=== PATIENT | female | born 1965 | race Caucasian/White ===

== ENCOUNTER 2016-10-21 09:08 | Inpatient (IN) | payer BC ==
[2016-10-21 12:33] VITALS: BMI 29.8
--- NOTE | 2016-10-21 13:25 | HP ---
COWS - Scale Resting Pulse: 0= [place] 80 or Below Sweatin=Flushed/Facial Moisture Restless Observation: 1= Difficult to Sit Still Pupil Size: 0= Normal to Room Light Bone or Joint Aches: 2= Severe Diffuse Aches Runny Nose/ Eye Tearin= Runny Nose/Eyes GI Upset > 30mins: 2= Nausea/Diarrhea Tremor Observation: 2= Slight Tremor Visible Yawning Observation: 2= >3x During Session Anxiety or Irritability: 2=Irritable/Anxious Goose Flesh Skin: 3=Piloerection COWS Score: 18 CIWA Score - CIWA Score Nausea/Vomitin-Mild Nausea/No Vomiting Muscle Tremors: 4-Moderate,w/Arms Extend Anxiety: 3 Agitation: 4-Moderately Restless Paroxysmal Sweats: 3 Orientation: 0-Oriented Tacttile Disturbances: 0-None Auditory Disturbances: 0-None Visual Disturbances: 0-None Headache: 1-Very Mild CIWA-Ar Total Score: 16 Admission ROS BHS - HPI Chief Complaint: I need to stop and get my self together. Allergies/Adverse Reactions: Allergies Allergy/AdvReac Type Severity Reaction Status Date / Time celecoxib [From Celebrex] Allergy Severe Rash Verified 10/21/16 12:51 History of Present Illness: pt is a 51yr old male with a history of alcohol, benzodiazapine, oxycodone dependence seeking detox for treatment. Exam Limitations: No Limitations - Ebola screening Have you traveled outside of the country in the last 21 days: No Have you had contact with anyone from an Ebola affected area: No Have you been sick,other than usual withdrawal symptoms: No Do you have a fever: No - Review of Systems Constitutional: Diaphoresis, Loss of Appetite, Night Sweats, Unintentional Wgt. Loss EENT: reports: Tearing, Nose Congestion Respiratory: reports: No Symptoms reported Cardiac: reports: Syncope GI: reports: Constipated, Nausea, Poor Appetite, Poor Fluid Intake, Vomiting : reports: No Symptoms Reported Musculoskeletal: reports: Back Pain, Joint Pain, Joint Stiffness Integumentary: reports: Flushing, Sweating Neuro: reports: Headache, Tingling, Tremors Endocrine: reports: Flushing, Intolerance to Cold, Intolerance to Heat Hematology: reports: No Symptoms Reported Psychiatric: reports: Judgement Intact, Mood/Affect Appropiate, Orientated x3, Agitated, Anxious Other Systems: Reviewed and Negative Patient History - Patient Medical History Hx Anemia: No Hx Asthma: No Hx Chronic Obstructive Pulmonary Disease (COPD): No Hx Cancer: No Hx Cardiac Disorders: No Hx Congestive Heart Failure: No Hx Hypertension: No Hx Hypercholesterolemia: No Hx Pacemaker: No HX Cerebrovascular Accident: No Hx Seizures: No Hx Diabetes: No Hx Gastrointestinal Disorders: No Hx Liver Disease: No Hx Genitourinary Disorders: No Hx Sexually Transmitted Disorders: Yes (syphilis since age 14. titer 1;4-1;8) Hx Renal Disease (ESRD): No Hx Thyroid Disease: No Hx Human Immunodeficiency Virus (HIV): No (neg 2011) Hx Hepatitis C: Yes (was treated unsuccessfully undetecable) Hx Depression: Yes Hx Suicide Attempt: No (denies) Hx Bipolar Disorder: No Hx Schizophrenia: No - Patient Surgical History Past Surgical History: Yes Hx Neurologic Surgery: No Hx Cataract Extraction: No Hx Cardiac Surgery: No Hx Lung Surgery: No Hx Breast Surgery: No Hx Breast Biopsy: No Hx Abdominal Surgery: No Hx Appendectomy: No Hx Cholecystectomy: Yes (2003) Hx Genitourinary Surgery: No Hx Section: No Hx Orthopedic Surgery: Yes (right rotator cuff, right knee,left knee) Other Surgical History: lower back Anesthesia Reaction: No - PPD History Previous Implant?: Yes PPD to be Administered?: Yes - Reproductive History Patient is a Female of Child Bearing Age (11 -55 yrs old): Yes Last Menstrual Period: 09/22/15 Patient : Yes - Smoking Cessation Smoking history: Current every day smoker Have you smoked in the past 12 months: Yes Aproximately how many cigarettes per day: 20 Cigars Per Day: 0 Hx Chewing Tobacco Use: No Initiated information on smoking cessation: Yes 'Breaking Loose' booklet given: 10/21/16 - Substance & Tx. History Hx Alcohol Use: Yes Hx Substance Use: Yes Substance Use Type: Alcohol, Opiates, Prescribed Hx Substance Use Treatment: Yes - Substances Abused Alcohol Route: Oral Frequency: Daily Amount used: 1-2 6pk Age of first use: 14 Date of Last Use: 10/21/16 Percocet Route: Oral Frequency: 1-3 times last 30 days Amount used: 1 tab (10-325mg) Age of first use: 50 Date of Last Use: 10/21/16 Xanax Route: Oral Frequency: Daily Amount used: 10mg Age of first use: 50 Date of Last Use: 10/21/16 Family Disease History - Family Disease History Family Disease History: Other: Father (heroin, crack), Mother (MMTP) Admission Physical Exam [facility] - Vital Signs Vital Signs: Vital Signs - 24 hr 10/21/16 12:30 Temperature 97.1 F L Pulse Rate 77 Respiratory 18 Rate Blood Pressure 109/76 - Physical General Appearance: Yes: Appropriately Dressed, Moderate Distress, Obese, Tremorous, Irritable, Sweating, Anxious HEENTM: Yes: Hearing grossly Normal, Normal Voice, Nasal Congestion Respiratory: Yes: Lungs Clear, Normal Breath Sounds, No Respiratory Distress Neck: Yes: No masses,lesions,Nodules Breast: Yes: Within Normal Limits, Axillae without masses Cardiology: Yes: Regular Rhythm, Regular Rate, S1, S2 Abdominal: Yes: Normal Bowel Sounds, Non Tender, Soft Genitourinary: Yes: Within Normal Limits Back: Yes: Normal Inspection Musculoskeletal: Yes: full range of Motion, Gait Steady, Back pain Extremities: Yes: Normal Capillary Refill, Normal Inspection, Non-Tender, Tremors Neurological: Yes: Fully Oriented, Alert, Normal Response Integumentary: Yes: Normal Color, Diaphoresis Lymphatic: Yes: Within Normal Limits - Diagnostic (1) Alcohol dependence with uncomplicated withdrawal Current Visit: Yes Status: Chronic (2) Depression Current Visit: Yes Status: Chronic Qualifiers: Major depression episode severity: unspecified (3) Hepatitis C Current Visit: No Status: Chronic Qualifiers: Hepatic coma status: without hepatic coma Comment: received treatment (rebeka) now undetected (4) Nicotine dependence Current Visit: Yes Status: Chronic Qualifiers: Nicotine product type: cigarettes Substance use status: uncomplicated Qualified Code(s): F17.210 - Nicotine dependence, cigarettes, uncomplicated (5) Opioid dependence with withdrawal Current Visit: Yes Status: Chronic (6) Sedative/hypnotic withdrawal without complication Current Visit: Yes Status: Chronic Cleared for Admission [facility] - Detox or Rehab [facility] Level of Care: Medically Managed Detox Regimen/Protocol: Methadone/Valium [facility] Breath Alcohol Content Breath Alcohol Content: 0 Urine Pregancy Test - Result Urine Test Results: Negative- NO Line Present Urine Drug Screen - Results Drug Screen Negative: No Urine Drug Screen Results: OPI-Opiates, BZO-Benzodiazepines, MTD-Methadone, TCA- Tricyclic Antidepress, OXY-Oxycodone
[2016-10-21] MEDS ORDERED: P-EPHED 60MG/TRIPROLIDI 2.5MG TABLET PO PRN (13:40)
[2016-10-21] MEDS ORDERED: hydrOXYzine PAMOATE 50 MG CAPSULE (FP) PO PRN (13:40)
[2016-10-21] MEDS ORDERED: MAGNESIUM HYDROX 2400MG/30ML ORAL SUSPENSION 30 ML CUP PO PRN (13:40)
[2016-10-21] MEDS ORDERED: NICOTINE POLACRILEX 4 MG GUM BUC PRN (13:40)
[2016-10-21] MEDS ORDERED: MAGNESIUM CITRATE 300 ML BOTTLE PO PRN (13:40)
[2016-10-21] MEDS ORDERED: guaiFENesin/D-METHORPHAN HB 10 ML UNIT-DOSE CUPS PO PRN (13:40)
[2016-10-21] MEDS ORDERED: MENTHOL/PHENOL 1 EACH UD MM PRN (13:40)
[2016-10-21] MEDS ORDERED: MAG HYDROX/AL HYDROX/SIMETH 30 ML UNIT-DOSE CUP PO PRN (13:40)
[2016-10-21] MEDS ORDERED: IBUPROFEN 400 MG TABLET (FP) PO PRN (13:40)
[2016-10-21] MEDS ORDERED: LOPERAMIDE HCL 2 MG CAPSULE PO PRN (13:40)
[2016-10-21] MEDS ORDERED: diazePAM 5 MG TABLET PO ONE (14:03)
[2016-10-21] MEDS ORDERED: METHADONE HCL 10 MG TABLET (FOR DETOX USE ONLY) PO ONE ×2 (14:04→23:00)
[2016-10-21] MEDS: diazePAM 5 MG TABLET PO SCH ×2 (15:29→22:26)
[2016-10-21 17:23] LABS: URINE APPEARANCE SLCLOUDY; URINE BILIRUBIN NEGATIVE (NEGATIVE); URINE BLOOD NEGATIVE (NEGATIVE); URINE COLOR AMBER; URINE GLUCOSE (UA) NEGATIVE (NEGATIVE); URINE KETONE NEGATIVE (NEGATIVE); URINE NITRITE NEGATIVE (NEGATIVE); URINE PROTEIN NEGATIVE (NEGATIVE); URINE UROBILINOGEN 4.0 E.U/dl E.U./dl (0.2-1.0)
[2016-10-21 17:24] LABS: URINE LEUK ESTERASE 3+ (NEGATIVE)
[2016-10-21 18:00] LABS: URINE MUCUS RARE; URINE RBC 23 /hpf (0-3); URINE WBC 24 /hpf (3-5)
[2016-10-21] MEDS: ACETAMINOPHEN 325 MG TABLET (FP) PO PRN (19:12)
[2016-10-21] MEDS: diazePAM 5 MG TABLET PO PRN (19:59)
[2016-10-21] MEDS: diphenhydrAMINE HCL 50 MG CAPSULE PO PRN (22:25)
[2016-10-21] MEDS: THIAMINE HCL 100 MG TABLET (FP) PO SCH (22:26)
[2016-10-22] MEDS ORDERED: METHADONE HCL 10 MG TABLET ONE (05:07)
[2016-10-22] MEDS ORDERED: METHADONE HCL 40 MG DISPERSABLE TABLET ONE ×2 (05:08→09:44)
[2016-10-22] MEDS ORDERED: METHADONE 80 MG, METHADONE 20 MG PO SCH ×2 (06:00→08:00)
[2016-10-22] MEDS ORDERED: METHADONE HCL 10 MG TABLET PO SCH (06:00)
[2016-10-22] MEDS: diazePAM 5 MG TABLET PO SCH ×3 (06:06→22:19)
[2016-10-22] MEDS: ACETAMINOPHEN 325 MG TABLET (FP) PO PRN ×2 (08:50→19:28)
[2016-10-22] MEDS: diazePAM 5 MG TABLET PO PRN ×2 (08:51→19:28)
[2016-10-22] MEDS ORDERED: METHADONE HCL 10 MG TABLET (FOR DETOX USE ONLY) ONE (09:44)
[2016-10-22] MEDS ORDERED: METHADONE HCL 10 MG TABLET (FOR DETOX USE ONLY) PO SCH (10:00)
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
[2016-10-22] MEDS ORDERED: ZOLPIDEM TARTRATE 5 MG TABLET PO PRN (10:57)
[2016-10-22 11:06] LABS: MCH 30.3 pg (25.7-33.7); MCHC 33.6 g/dl (32.0-36.0); MEAN CELL VOLUME 90.3 fl (80-96); MEAN PLT VOLUME 10.6 fl (7.5-11.1); PLATELET COUNT 102 K/MM3 (134-434); RDW 14.9 % (11.6-15.6); WHITE BLOOD COUNT 6.5 K/mm3 (4.0-10.0)
[2016-10-22] MEDS: NICOTINE 21 MG/24 HOURS TOPICAL PATCH TD SCH (11:09)
[2016-10-22] MEDS: METHADONE 80 MG, METHADONE (DETOX) 20 MG PO SCH (11:09)
[2016-10-22] MEDS: PRENATAL VITAMINS W/ FOLIC ACID TABLET (FP) PO SCH (11:09)
[2016-10-22 11:59] LABS: ALBUMIN 3.7 g/dl (3.4-5.0); ALK PHOS 99 U/L (45-117); ANION GAP 9 (8-16); BILIRUBIN,TOTAL 0.4 mg/dL (0.2-1.0); CALCIUM 8.5 mg/dL (8.5-10.1); CO2 28 mmol/L (21-32); CREATININE 0.8 mg/dL (0.55-1.02); GLUCOSE,RANDOM 103 mg/dL (74-106); SGOT/AST 29 U/L (15-37); SGPT/ALT 33 U/L (12-78); TOT PROT 8.3 g/dl (6.4-8.2)
--- NOTE | 2016-10-22 14:06 | PN ---
S CIWA - CIWA Score Nausea/Vomitin Muscle Tremors: 4-Moderate,w/Arms Extend Anxiety: 4-Mod. Anxious/Guarded Agitation: 4-Moderately Restless Paroxysmal Sweats: 3 Orientation: 0-Oriented Tacttile Disturbances: 1-Very Mild Itch/Numbness Auditory Disturbances: 0-None Visual Disturbances: 0-None Headache: 0-None Present CIWA-Ar Total Score: 19 BHS COWS - Scale Resting Pulse: 1= [place] 81-100 Sweatin= Chills/Flushing Restless Observation: 1= Difficult to Sit Still Pupil Size: 1= Pupils >than Normal Bone or Joint Aches: 1= Mild Discomfort Runny Nose/ Eye Tearin= Nasal Congestion GI Upset > 30mins: 2= Nausea/Diarrhea Tremor Observation of Outstretched Hands: 2= Slight Tremor Visible Yawning Observation: 1= 1-2x During Session Anxiety or Irritability: 2=Irritable/Anxious Goose Flesh Skin: 3=Piloerection COWS Score: 16 S Progress Note (SOAP) Subjective: nausea, sweats, interrupted sleep, anxiety, tremor Objective: 10/22/16 14:06 Vital Signs - 24 hr 10/21/16 10/21/16 10/21/16 15:18 19:12 22:04 Temperature 98.2 F 98.1 F 98.2 F Pulse Rate 76 75 87 Respiratory 18 18 16 Rate Blood Pressure 108/67 108/72 121/76 10/22/16 10/22/16 10/22/16 00:30 03:30 06:34 Temperature 98.1 F Pulse Rate 74 Respiratory 16 18 18 Rate Blood Pressure 101/66 10/22/16 10:07 Temperature 98.4 F Pulse Rate 80 Respiratory 18 Rate Blood Pressure 104/79 Laboratory Tests 10/21/16 10/22/16 10/22/16 16:00 06:10 06:10 WBC 6.5 D RBC 4.88 Hgb 14.8 D Hct 44.1 MCV 90.3 MCHC 33.6 RDW 14.9 Plt Count 102 L D MPV 10.6 Sodium 136 Potassium 3.9 Chloride 99 Carbon Dioxide 28 Anion Gap 9 BUN 16 D Creatinine 0.8 Creat Clearance w eGFR > 60 Random Glucose 103 Calcium 8.5 Total Bilirubin 0.4 D AST 29 ALT 33 D Alkaline Phosphatase 99 Total Protein 8.3 H Albumin 3.7 Urine Color Lau[place] Urine Appearance Slcloudy Urine pH 5.0 Ur Specific [place] 1.020 Urine Protein Negative Urine Glucose (UA) Negative Urine Ketones Negative Urine Blood Negative Urine Nitrite Negative Urine Bilirubin Negative Urine Urobilinogen 4.0 e.u/dl H Ur Leukocyte Esterase 3+ H Urine RBC 23 Urine WBC 24 Ur Epithelial Cells Few Urine Mucus Rare Assessment: 10/22/16 14:06 withdrawal sx Plan: cont detox
[2016-10-22] MEDS: THIAMINE HCL 100 MG TABLET (FP) PO SCH (22:19)
[2016-10-23] MEDS: ACETAMINOPHEN 325 MG TABLET (FP) PO PRN (00:31)
[2016-10-23] MEDS: diphenhydrAMINE HCL 50 MG CAPSULE PO PRN (00:31)
[2016-10-23] MEDS ORDERED: METHADONE 80 MG, METHADONE 20 MG PO SCH ×2 (06:00)
[2016-10-23] MEDS ORDERED: METHADONE HCL 10 MG TABLET (FOR DETOX USE ONLY) ONE (09:44)
[2016-10-23] MEDS ORDERED: METHADONE HCL 40 MG DISPERSABLE TABLET ONE (09:45)
[2016-10-23] MEDS ORDERED: ONDANSETRON 8 MG TABLET (FP) PO ONE (09:48)
[2016-10-23] MEDS ORDERED: ONDANSETRON 4 MG TABLET PO PRN (09:48)
--- NOTE | 2016-10-23 09:48 | PN ---
[facility] CIWA - CIWA Score Nausea/Vomitin-Int. Nausea w/Dry Heave Muscle Tremors: 4-Moderate,w/Arms Extend Anxiety: 4-Mod. Anxious/Guarded Agitation: 4-Moderately Restless Paroxysmal Sweats: 3 Orientation: 0-Oriented Tacttile Disturbances: 1-Very Mild Itch/Numbness Auditory Disturbances: 0-None Visual Disturbances: 0-None Headache: 1-Very Mild CIWA-Ar Total Score: 21 BHS COWS - Scale Resting Pulse: 1= [place] 81-100 Sweatin= Chills/Flushing Restless Observation: 1= Difficult to Sit Still Pupil Size: 1= Pupils >than Normal Bone or Joint Aches: 2= Severe Diffuse Aches Runny Nose/ Eye Tearin= Nasal Congestion GI Upset > 30mins: 3= Vomiting/Diarrhea Tremor Observation of Outstretched Hands: 2= Slight Tremor Visible Yawning Observation: 1= 1-2x During Session Anxiety or Irritability: 2=Irritable/Anxious Goose Flesh Skin: 3=Piloerection COWS Score: 18 [facility] Progress Note (SOAP) Subjective: NAUSEA, VOMITINGK ANXIETY, DEPRESSION, INSOMNIA, DIFFICULATY URINATING, BODY ACHES, SWEATS, TREMORS Objective: 10/23/16 09:46 Vital Signs - 24 hr 10/22/16 10/22/16 10/22/16 10:07 14:38 18:03 Temperature 98.4 F 98.2 F 97.7 F Pulse Rate 80 84 59 L Respiratory 18 20 16 Rate Blood Pressure 104/79 110/76 109/68 10/22/16 10/23/16 10/23/16 23:10 03:30 06:00 Temperature 97.9 F 98.4 F Pulse Rate 66 64 Respiratory 18 18 18 Rate Blood Pressure 111/72 114/73 10/23/16 06:30 Temperature Pulse Rate Respiratory 16 Rate Blood Pressure Laboratory Tests 10/21/16 10/22/16 10/22/16 16:00 06:10 06:10 WBC 6.5 D RBC 4.88 Hgb 14.8 D Hct 44.1 MCV 90.3 MCHC 33.6 RDW 14.9 Plt Count 102 L D MPV 10.6 Sodium 136 Potassium 3.9 Chloride 99 Carbon Dioxide 28 Anion Gap 9 BUN 16 D Creatinine 0.8 Creat Clearance w eGFR > 60 Random Glucose 103 Calcium 8.5 Total Bilirubin 0.4 D AST 29 ALT 33 D Alkaline Phosphatase 99 Total Protein 8.3 H Albumin 3.7 Urine Color [place] Urine Appearance Slcloudy Urine pH 5.0 Ur Specific [place] 1.020 Urine Protein Negative Urine Glucose (UA) Negative Urine Ketones Negative Urine Blood Negative Urine Nitrite Negative Urine Bilirubin Negative Urine Urobilinogen 4.0 e.u/dl H Ur Leukocyte Esterase 3+ H Urine RBC 23 Urine WBC 24 Ur Epithelial Cells Few Urine Mucus Rare abnormal u/a Assessment: 10/23/16 09:47 withdrawal sx, abnormal u/a Plan: cont detox, encourage fluids, repeat u/a, symptomatic relief kali weiner
[2016-10-23] MEDS ORDERED: METHADONE HCL 5 MG TABLET (FOR DETOX USE ONLY) PO SCH (10:00)
[2016-10-23] MEDS ORDERED: cloNIDine HCL 0.1 MG TABLET PO SCH (10:00)
[2016-10-23] MEDS: cloNIDine HCL 0.1 MG TABLET PO SCH (10:19)
[2016-10-23] MEDS: diazePAM 5 MG TABLET PO SCH ×2 (10:19→22:17)
[2016-10-23] MEDS: NAPROXEN 500 MG TABLET (FP) PO SCH ×2 (10:19→22:17)
[2016-10-23] MEDS: METHADONE 80 MG, METHADONE (DETOX) 20 MG PO SCH (10:19)
[2016-10-23] MEDS: NICOTINE 21 MG/24 HOURS TOPICAL PATCH TD SCH (10:19)
[2016-10-23] MEDS: PRENATAL VITAMINS W/ FOLIC ACID TABLET (FP) PO SCH (10:20)
[2016-10-23] MEDS ORDERED: ONDANSETRON *ODT* 4 MG TABLET SL PRN (11:25)
[2016-10-23] MEDS ORDERED: ONDANSETRON *ODT* 4 MG TABLET SL ONE (11:30)
[2016-10-23] MEDS: CYCLOBENZAPRINE HCL 10 MG TABLET (FP) PO SCH ×2 (14:33→22:17)
[2016-10-23] MEDS: diazePAM 5 MG TABLET PO PRN (14:34)
[2016-10-23] MEDS ORDERED: ZOLPIDEM TARTRATE 5 MG TABLET PO PRN (22:00)
[2016-10-23] MEDS: THIAMINE HCL 100 MG TABLET (FP) PO SCH (22:16)
[2016-10-23] MEDS: diphenhydrAMINE HCL 50 MG CAPSULE PO SCH (22:17)
[2016-10-23 22:42] LABS: URINE APPEARANCE SLCLOUDY; URINE BILIRUBIN NEGATIVE (NEGATIVE); URINE BLOOD NEGATIVE (NEGATIVE); URINE COLOR DKYELLOW; URINE GLUCOSE (UA) NEGATIVE (NEGATIVE); URINE KETONE NEGATIVE (NEGATIVE); URINE NITRITE NEGATIVE (NEGATIVE); URINE PROTEIN NEGATIVE (NEGATIVE); URINE UROBILINOGEN 4.0 E.U/dl E.U./dl (0.2-1.0)
[2016-10-23 22:43] LABS: URINE LEUK ESTERASE 3+ (NEGATIVE)
[2016-10-23 22:46] LABS: URINE MUCUS FEW; URINE RBC 13 /hpf (0-3); URINE WBC 25 /hpf (3-5)
[2016-10-24] MEDS: diphenhydrAMINE HCL 50 MG CAPSULE PO SCH ×2 (00:40→22:25)
[2016-10-24] MEDS: CYCLOBENZAPRINE HCL 10 MG TABLET (FP) PO SCH ×3 (05:52→22:24)
[2016-10-24] MEDS: diazePAM 5 MG TABLET PO PRN (05:54)
[2016-10-24] MEDS ORDERED: METHADONE HCL 40 MG DISPERSABLE TABLET ONE (08:41)
[2016-10-24] MEDS ORDERED: METHADONE HCL 10 MG TABLET (FOR DETOX USE ONLY) ONE (08:41)
[2016-10-24] MEDS: cloNIDine HCL 0.1 MG TABLET PO SCH ×2 (10:14→22:25)
[2016-10-24] MEDS: METHADONE 80 MG, METHADONE (DETOX) 20 MG PO SCH (10:14)
[2016-10-24] MEDS: diazePAM 5 MG TABLET PO SCH ×2 (10:14→22:23)
[2016-10-24] MEDS: NICOTINE 21 MG/24 HOURS TOPICAL PATCH TD SCH (10:14)
[2016-10-24] MEDS: PRENATAL VITAMINS W/ FOLIC ACID TABLET (FP) PO SCH (10:14)
[2016-10-24] MEDS: NAPROXEN 500 MG TABLET (FP) PO SCH ×2 (10:15→22:24)
--- NOTE | 2016-10-24 10:50 | PN ---
[facility] Progress Note (SOAP) Subjective: sweats interrupted sleep agitation Objective: 10/24/16 10:49 Vital Signs Temperature 97.9 F 10/24/16 10:15 Pulse Rate 78 10/24/16 10:15 Respiratory Rate 18 10/24/16 10:15 Blood Pressure 106/70 10/24/16 10:15 O2 Sat by Pulse Oximetry (%) awake/alert ambulating no acute distress Assessment: 10/24/16 10:49 withdrawal sx Plan: continue detox increase fluids d/c in am
--- NOTE | 2016-10-24 12:18 | PN ---
S Progress Note Note: pt has a 1:8 titer for syphilis; penecillian g 2.4million x one dose. pt was advised to follow up with PMD to receive the remaining doses; pt in agreement.
[2016-10-24] MEDS ORDERED: PENICILLIN G BENZATHINE 2,400,000 UNIT/4 ML PFS IM ONE (12:22)
--- NOTE | 2016-10-24 12:48 | EKG ---
Test Reason : Blood Pressure : / mmHG Vent. Rate : 073 BPM Atrial Rate : 073 BPM P-R Int : 120 ms QRS Dur : 080 ms QT Int : 426 ms P-R-T Axes : 011 001 028 degrees QTc Int : 469 ms NORMAL SINUS RHYTHM NORMAL ECG NO PREVIOUS ECGS AVAILABLE Confirmed by LUPILLO COBOS MD ([id number]) on 10/24/2016 12:47:55 PM Referred By: Mauricio Allan Confirmed By:LUPILLO COBOS MD
[2016-10-24] MEDS: THIAMINE HCL 100 MG TABLET (FP) PO SCH (22:23)
[2016-10-25] MEDS: diphenhydrAMINE HCL 50 MG CAPSULE PO SCH (00:35)
[2016-10-25] MEDS: CYCLOBENZAPRINE HCL 10 MG TABLET (FP) PO SCH (05:19)
[2016-10-25 06:27] VITALS: BP 102/73; PULSE 64; TEMP 981
[2016-10-25] MEDS ORDERED: METHADONE HCL 10 MG TABLET (FOR DETOX USE ONLY) ONE (08:44)
[2016-10-25] MEDS ORDERED: METHADONE HCL 40 MG DISPERSABLE TABLET ONE (08:45)
--- NOTE | 2016-10-25 08:48 | DS ---
[facility] Detox Discharge Summary Admission Date: 10/21/16 Discharge Date: 10/25/16 - History Present History: Alcohol Dependence, MMTP - Physical Exam Results Vital Signs: Vital Signs Temperature 981 F H 10/25/16 06:26 Pulse Rate 64 10/25/16 06:26 Respiratory Rate 18 10/25/16 06:26 Blood Pressure 102/73 10/25/16 06:26 O2 Sat by Pulse Oximetry (%) - Treatment Hospital Course: Detox Protocol Followed, Detoxed Safely, Responded well, Discharged Condition Good - Medication Discharge Medications: Ambulatory Orders Zolpidem Tartrate [Ambien] 10 mg PO HS PRN #30 tablet MDD 30 10/22/16 - Diagnosis (1) Opioid dependence on agonist therapy Current Visit: Yes Status: Chronic (2) PTSD (post-traumatic stress disorder) Current Visit: Yes Status: Chronic (3) Alcohol dependence with uncomplicated withdrawal Current Visit: Yes Status: Chronic (4) Depression Current Visit: Yes Status: Chronic Qualifiers: Major depression episode severity: unspecified (5) Nicotine dependence Current Visit: Yes Status: Chronic Qualifiers: Nicotine product type: cigarettes Substance use status: uncomplicated Qualified Code(s): F17.210 - Nicotine dependence, cigarettes, uncomplicated (6) Sedative/hypnotic withdrawal without complication Current Visit: Yes Status: Chronic (7) Hepatitis C Current Visit: Yes Status: Chronic Qualifiers: Hepatic coma status: without hepatic coma (8) Syphilis Current Visit: Yes Status: Acute - AMA Did Patient Leave Against Medical Advice: No (pt will f/up with [facility] for 2nd and 3rd im pcn )
[2016-10-25] MEDS ORDERED: METHADONE 80 MG, METHADONE (DETOX) 20 MG PO SCH (09:00)
[2016-10-25] MEDS ORDERED: METHADONE 80 MG, METHADONE 20 MG PO ONE (09:00)
[2016-10-25] MEDS: NAPROXEN 500 MG TABLET (FP) PO SCH (09:18)
[2016-10-25] MEDS: NICOTINE 21 MG/24 HOURS TOPICAL PATCH TD SCH (09:19)
[2016-10-25] MEDS: cloNIDine HCL 0.1 MG TABLET PO SCH (09:19)
[2016-10-25] MEDS: PRENATAL VITAMINS W/ FOLIC ACID TABLET (FP) PO SCH (09:20)
[2016-10-25] MEDS ORDERED: METHADONE HCL 10 MG TABLET (FOR DETOX USE ONLY) PO SCH (10:00)
[2016-10-25] MEDS ORDERED: diazePAM 5 MG TABLET PO SCH (10:00)
[2016-10-26] MEDS ORDERED: METHADONE HCL 5 MG TABLET (FOR DETOX USE ONLY) PO SCH (06:00)
== END 2016-10-25 09:24 | disposition home or self-care (01) | DRG 897 ==
LOC: YASAS 09:08 → Y6N 13:03
PROVIDERS: ADMIT Internal Medicine; ATTEND Internal Medicine
PROC: HZ2ZZZZ Detoxification Services for Substance Abuse Treatment (ICD-10-PCS; principal; 2016-10-21)
DX: F11.23 Opioid dependence with withdrawal (principal); F19.280 Other psychoactive substance dependence with psychoactive substance-induced anxiety disorder; F13.230 Sedative, hypnotic or anxiolytic dependence with withdrawal, uncomplicated; F10.230 Alcohol dependence with withdrawal, uncomplicated; F17.210 Nicotine dependence, cigarettes, uncomplicated; F19.24 Other psychoactive substance dependence with psychoactive substance-induced mood disorder; F43.10 Post-traumatic stress disorder, unspecified; F32.9 Major depressive disorder, single episode, unspecified; B18.2 Chronic viral hepatitis C; A53.9 Syphilis, unspecified; R82.90 Unspecified abnormal findings in urine; E66.9 Obesity, unspecified; Z68.29 Body mass index [BMI] 29.0-29.9, adult
CPT/HCPCS: 36415; 80053; 81003; 81015; 85027; 86593; 86780; 93005; 93010

== ENCOUNTER 2017-05-19 09:31 | Inpatient (IN) | payer OTHER ==
[2017-05-19 11:09] VITALS: BMI 29.2
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
[2017-05-19] MEDS ORDERED: LOPERAMIDE HCL 2 MG CAPSULE PO PRN (13:47)
[2017-05-19] MEDS ORDERED: guaiFENesin/D-METHORPHAN HB 10 ML UNIT-DOSE CUPS PO PRN (13:47)
[2017-05-19] MEDS ORDERED: ACETAMINOPHEN 325 MG TABLET (FP) PO PRN (13:47)
[2017-05-19] MEDS ORDERED: MAGNESIUM CITRATE 300 ML BOTTLE PO PRN (13:47)
[2017-05-19] MEDS ORDERED: NICOTINE POLACRILEX 2 MG GUM BUC PRN (13:47)
[2017-05-19] MEDS ORDERED: diphenhydrAMINE HCL 50 MG CAPSULE PO PRN (13:47)
[2017-05-19] MEDS ORDERED: P-EPHED 60MG/TRIPROLIDI 2.5MG TABLET PO PRN (13:47)
[2017-05-19] MEDS ORDERED: MENTHOL/PHENOL 1 EACH UD MM PRN (13:47)
[2017-05-19] MEDS ORDERED: MAG HYDROX/AL HYDROX/SIMETH 30 ML UNIT-DOSE CUP PO PRN (13:47)
[2017-05-19] MEDS ORDERED: MAGNESIUM HYDROX 2400MG/30ML ORAL SUSPENSION 30 ML CUP PO PRN (13:47)
[2017-05-19] MEDS ORDERED: IBUPROFEN 400 MG TABLET (FP) PO PRN (13:47)
[2017-05-19] MEDS ORDERED: diazePAM 5 MG TABLET PO ONE (14:54)
[2017-05-19] MEDS: CYCLOBENZAPRINE HCL 10 MG TABLET (FP) PO PRN ×2 (15:52→22:12)
[2017-05-19] MEDS: NICOTINE 21 MG/24 HOURS TOPICAL PATCH TD SCH (15:52)
[2017-05-19] MEDS: LIDOCAINE 5% TOPICAL PATCH TP SCH (15:59)
[2017-05-19 17:00] LABS: URINE APPEARANCE CLOUDY; URINE BLOOD NEGATIVE (NEGATIVE); URINE COLOR AMBER; URINE GLUCOSE (UA) NEGATIVE (NEGATIVE); URINE KETONE NEGATIVE (NEGATIVE); URINE NITRITE NEGATIVE (NEGATIVE); URINE UROBILINOGEN 4.0 E.U/dl mg/dL (0.2-1.0)
[2017-05-19 17:07] LABS: URINE LEUK ESTERASE 2+ (NEGATIVE); URINE PROTEIN 1+ (NEGATIVE)
[2017-05-19 20:00] LABS: URINE BACTERIA RARE /hpf (NONE SEEN); URINE MUCUS MANY; URINE RBC 6 /hpf (0-3); URINE WBC 27 /hpf (3-5)
[2017-05-19] MEDS: diazePAM 5 MG TABLET PO SCH (22:12)
[2017-05-19] MEDS: THIAMINE HCL 100 MG TABLET (FP) PO SCH (22:12)
[2017-05-19] MEDS: LIDOCAINE PATCH REMOVAL MC SCH (22:29)
[2017-05-20] MEDS: diazePAM 5 MG TABLET PO SCH ×3 (05:57→22:33)
[2017-05-20] MEDS: CYCLOBENZAPRINE HCL 10 MG TABLET (FP) PO PRN ×3 (05:58→22:34)
[2017-05-20] MEDS: diazePAM 5 MG TABLET PO PRN ×2 (08:55→15:38)
[2017-05-20] MEDS ORDERED: METHADONE HCL 10 MG TABLET PO SCH (10:00)
[2017-05-20] MEDS: LIDOCAINE 5% TOPICAL PATCH TP SCH (10:40)
[2017-05-20] MEDS: PRENATAL VITAMINS W/ FOLIC ACID TABLET (FP) PO SCH (10:41)
[2017-05-20] MEDS: NICOTINE 21 MG/24 HOURS TOPICAL PATCH TD SCH (10:41)
[2017-05-20] MEDS: cloNIDine HCL 0.1 MG TABLET PO SCH ×2 (11:03→22:33)
[2017-05-20 11:07] LABS: MCH 30.6 pg (25.7-33.7); MCHC 34.4 g/dl (32.0-36.0); MEAN CELL VOLUME 89.1 fl (80-96); MEAN PLT VOLUME 10.9 fl (7.5-11.1); PLATELET COUNT 71 K/MM3 (134-434); RDW 14.8 % (11.6-15.6); WHITE BLOOD COUNT 3.8 K/mm3 (4.0-10.0)
[2017-05-20 11:11] LABS: ANION GAP 6 (8-16); CALCIUM 8.6 mg/dL (8.5-10.1); CO2 31 mmol/L (21-32); CREATININE 0.6 mg/dL (0.55-1.02); GLUCOSE,RANDOM 91 mg/dL (74-106); SGOT/AST 14 U/L (15-37); SGPT/ALT 17 U/L (12-78)
[2017-05-20 11:13] LABS: ALK PHOS 64 U/L (45-117); BILIRUBIN,TOTAL 0.5 mg/dL (0.2-1.0); TOT PROT 6.6 g/dl (6.4-8.2)
[2017-05-20] MEDS ORDERED: METHADONE HCL 10 MG TABLET PO ONE (12:00)
--- NOTE | 2017-05-20 14:39 | PN ---
[facility] CIWA - CIWA Score Nausea/Vomitin Muscle Tremors: 3 Anxiety: 3 Agitation: 2 Paroxysmal Sweats: 1-Minimal Palms Moist Orientation: 0-Oriented Tacttile Disturbances: 1-Very Mild Itch/Numbness Auditory Disturbances: 1-Very Mild Visual Disturbances: 1-Very Mild Sensitivity Headache: 2-Mild CIWA-Ar Total Score: 17 S Progress Note (SOAP) Subjective: alert,irritable,anxious,interrupted sleep,pain in the body and back and knee Objective: 05/20/17 14:36 Vital Signs Temperature 97.7 F 05/20/17 10:00 Pulse Rate 84 05/20/17 10:00 Respiratory Rate 18 05/20/17 10:00 Blood Pressure 116/80 05/20/17 10:00 O2 Sat by Pulse Oximetry (%) ekg nsr wih sinus arrhythmia Laboratory Last Values WBC 3.8 K/mm3 (4.0-10.0) L D 05/20/17 08:00 RBC 4.54 M/mm3 (3.60-5.2) 05/20/17 08:00 Hgb 13.9 GM/dL (10.7-15.3) 05/20/17 08:00 Hct 40.4 % (32.4-45.2) 05/20/17 08:00 MCV 89.1 fl (80-96) 05/20/17 08:00 MCH 30.6 pg (25.7-33.7) 05/20/17 08:00 MCHC 34.4 g/dl (32.0-36.0) 05/20/17 08:00 RDW 14.8 % (11.6-15.6) 05/20/17 08:00 Plt Count 71 K/MM3 (134-434) L D 05/20/17 08:00 MPV 10.9 fl (7.5-11.1) 05/20/17 08:00 Sodium 139 mmol/L (136-145) 05/20/17 08:00 Potassium 3.8 mmol/L (3.5-5.1) 05/20/17 08:00 Chloride 102 mmol/L (98-107) 05/20/17 08:00 Carbon Dioxide 31 mmol/L (21-32) 05/20/17 08:00 Anion Gap 6 (8-16) L 05/20/17 08:00 BUN 11 mg/dL (7-18) D 05/20/17 08:00 Creatinine 0.6 mg/dL (0.55-1.02) D 05/20/17 08:00 Creat Clearance w eGFR > 60 (>60) 05/20/17 08:00 Random Glucose 91 mg/dL (74-106) 05/20/17 08:00 Calcium 8.6 mg/dL (8.5-10.1) 05/20/17 08:00 Total Bilirubin 0.5 mg/dL (0.2-1.0) D 05/20/17 08:00 AST 14 U/L (15-37) L D 05/20/17 08:00 ALT 17 U/L (12-78) D 05/20/17 08:00 Alkaline Phosphatase 64 U/L (45-117) D 05/20/17 08:00 Total Protein 6.6 g/dl (6.4-8.2) D 05/20/17 08:00 Albumin 3.0 g/dl (3.4-5.0) L 05/20/17 08:00 Urine Color [place] 05/19/17 15:00 Urine Appearance Cloudy 05/19/17 15:00 Urine pH 5.0 (5.0-8.0) 05/19/17 15:00 Ur Specific [place] 1.025 (1.005-1.025) 05/19/17 15:00 Urine Protein 1+ (NEGATIVE) H 05/19/17 15:00 Urine Glucose (UA) Negative (NEGATIVE) 05/19/17 15:00 Urine Ketones Negative (NEGATIVE) 05/19/17 15:00 Urine Blood Negative (NEGATIVE) 05/19/17 15:00 Urine Nitrite Negative (NEGATIVE) 05/19/17 15:00 Urine Bilirubin 2.0 (NEGATIVE) 05/19/17 15:00 Urine Urobilinogen 4.0 e.u/dl mg/dL (0.2-1.0) H 05/19/17 15:00 Ur Leukocyte Esterase 2+ (NEGATIVE) H 05/19/17 15:00 Urine RBC 6 /hpf (0-3) 05/19/17 15:00 Urine WBC 27 /hpf (3-5) 05/19/17 15:00 Ur Epithelial Cells Many /hpf (FEW) 05/19/17 15:00 Urine Bacteria Rare /hpf (NONE SEEN) 05/19/17 15:00 Urine Mucus Many 05/19/17 15:00 RPR Titer Reactive 1:8 (NONREACTIVE) H 05/20/17 08:00 T.pallidum Ab (MHA) Previously reactive (NONREACTIVE) 05/20/17 08:00 05/20/17 14:38 previously treated for syphilis Assessment: 05/20/17 14:37 withdrawal symptom 05/20/17 14:38 Plan: continue detox,encourage oral fluid,repeat ua today r/o uti
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
[2017-05-20 17:00] LABS: URINE APPEARANCE SLCLOUDY; URINE BILIRUBIN NEGATIVE (NEGATIVE); URINE BLOOD NEGATIVE (NEGATIVE); URINE COLOR LTYELLOW; URINE GLUCOSE (UA) NEGATIVE (NEGATIVE); URINE KETONE NEGATIVE (NEGATIVE); URINE NITRITE NEGATIVE (NEGATIVE); URINE PROTEIN NEGATIVE (NEGATIVE)
[2017-05-20 17:03] LABS: URINE LEUK ESTERASE 1+ (NEGATIVE)
[2017-05-20 17:34] LABS: URINE BACTERIA RARE /hpf (NONE SEEN); URINE RBC 1 /hpf (0-3); URINE WBC 11 /hpf (3-5)
--- NOTE | 2017-05-20 18:45 | EKG ---
Test Reason : Blood Pressure : / mmHG Vent. Rate : 078 BPM Atrial Rate : 078 BPM P-R Int : 142 ms QRS Dur : 082 ms QT Int : 402 ms P-R-T Axes : 064 023 048 degrees QTc Int : 458 ms NORMAL SINUS RHYTHM WITH SINUS ARRHYTHMIA NORMAL ECG WHEN COMPARED WITH ECG OF 21-OCT-2016 15:31, NO SIGNIFICANT CHANGE WAS FOUND Confirmed by CLINTON BRIGGS MD ([id number]) on 05/20/2017 6:45:01 PM Referred By: Mauricio Allan Confirmed By:CLINTON BRIGGS MD
[2017-05-20] MEDS: THIAMINE HCL 100 MG TABLET (FP) PO SCH (22:33)
[2017-05-20] MEDS: ZOLPIDEM TARTRATE 10 MG TABLET (PARK CARE ONLY) PO PRN (22:33)
[2017-05-20] MEDS: LIDOCAINE PATCH REMOVAL MC SCH (23:22)
[2017-05-21] MEDS ORDERED: METHADONE HCL 40 MG DISPERSABLE TABLET ONE (08:49)
[2017-05-21] MEDS ORDERED: METHADONE HCL 10 MG TABLET ONE (08:49)
[2017-05-21] MEDS ORDERED: ONDANSETRON *ODT* 4 MG TABLET SL PRN (09:15)
[2017-05-21] MEDS: NICOTINE 21 MG/24 HOURS TOPICAL PATCH TD SCH (09:44)
[2017-05-21] MEDS ORDERED: METHADONE 40 MG, METHADONE 10 MG PO SCH (10:00)
[2017-05-21] MEDS: diazePAM 5 MG TABLET PO SCH ×2 (10:26→22:26)
[2017-05-21] MEDS: CYCLOBENZAPRINE HCL 10 MG TABLET (FP) PO PRN ×2 (10:26→17:35)
[2017-05-21] MEDS: cloNIDine HCL 0.1 MG TABLET PO SCH ×2 (10:26→22:56)
[2017-05-21] MEDS: PRENATAL VITAMINS W/ FOLIC ACID TABLET (FP) PO SCH (10:26)
[2017-05-21] MEDS: LIDOCAINE 5% TOPICAL PATCH TP SCH (10:27)
--- NOTE | 2017-05-21 14:45 | PN ---
S CIWA - CIWA Score Nausea/Vomitin Muscle Tremors: 3 Anxiety: 3 Agitation: 2 Paroxysmal Sweats: No Perspiration Orientation: 1-Uncertain about Date Tacttile Disturbances: 1-Very Mild Itch/Numbness Auditory Disturbances: 1-Very Mild Visual Disturbances: 1-Very Mild Sensitivity Headache: 2-Mild CIWA-Ar Total Score: 17 BHS Progress Note (SOAP) Subjective: ALERT,IRRITABLE,ANXIOUS,INTERRUPTED SLEEP,PAIN IN THE BODY BACK KNEE Objective: 05/21/17 14:44 Vital Signs Temperature 98.1 F 05/21/17 14:11 Pulse Rate 81 05/21/17 14:11 Respiratory Rate 18 05/21/17 14:11 Blood Pressure 127/64 05/21/17 14:11 O2 Sat by Pulse Oximetry (%) Laboratory Last Values WBC 3.8 K/mm3 (4.0-10.0) L D 05/20/17 08:00 RBC 4.54 M/mm3 (3.60-5.2) 05/20/17 08:00 Hgb 13.9 GM/dL (10.7-15.3) 05/20/17 08:00 Hct 40.4 % (32.4-45.2) 05/20/17 08:00 MCV 89.1 fl (80-96) 05/20/17 08:00 MCH 30.6 pg (25.7-33.7) 05/20/17 08:00 MCHC 34.4 g/dl (32.0-36.0) 05/20/17 08:00 RDW 14.8 % (11.6-15.6) 05/20/17 08:00 Plt Count 71 K/MM3 (134-434) L D 05/20/17 08:00 MPV 10.9 fl (7.5-11.1) 05/20/17 08:00 Sodium 139 mmol/L (136-145) 05/20/17 08:00 Potassium 3.8 mmol/L (3.5-5.1) 05/20/17 08:00 Chloride 102 mmol/L (98-107) 05/20/17 08:00 Carbon Dioxide 31 mmol/L (21-32) 05/20/17 08:00 Anion Gap 6 (8-16) L 05/20/17 08:00 BUN 11 mg/dL (7-18) D 05/20/17 08:00 Creatinine 0.6 mg/dL (0.55-1.02) D 05/20/17 08:00 Creat Clearance w eGFR > 60 (>60) 05/20/17 08:00 Random Glucose 91 mg/dL (74-106) 05/20/17 08:00 Calcium 8.6 mg/dL (8.5-10.1) 05/20/17 08:00 Total Bilirubin 0.5 mg/dL (0.2-1.0) D 05/20/17 08:00 AST 14 U/L (15-37) L D 05/20/17 08:00 ALT 17 U/L (12-78) D 05/20/17 08:00 Alkaline Phosphatase 64 U/L (45-117) D 05/20/17 08:00 Total Protein 6.6 g/dl (6.4-8.2) D 05/20/17 08:00 Albumin 3.0 g/dl (3.4-5.0) L 05/20/17 08:00 Urine Color L[place] 05/20/17 16:40 Urine Appearance Slcloudy 05/20/17 16:40 Urine pH 9.0 (5.0-8.0) H D 05/20/17 16:40 Ur Specific [place] 1.015 (1.005-1.025) 05/20/17 16:40 Urine Protein Negative (NEGATIVE) 05/20/17 16:40 Urine Glucose (UA) Negative (NEGATIVE) 05/20/17 16:40 Urine Ketones Negative (NEGATIVE) 05/20/17 16:40 Urine Blood Negative (NEGATIVE) 05/20/17 16:40 Urine Nitrite Negative (NEGATIVE) 05/20/17 16:40 Urine Bilirubin Negative (NEGATIVE) 05/20/17 16:40 Urine Urobilinogen 2.0 mg/dL (0.2-1.0) H 05/20/17 16:40 Ur Leukocyte Esterase 1+ (NEGATIVE) H 05/20/17 16:40 Urine RBC 1 /hpf (0-3) 05/20/17 16:40 Urine WBC 11 /hpf (3-5) 05/20/17 16:40 Ur Epithelial Cells Moderate /hpf (FEW) 05/20/17 16:40 Urine Bacteria Rare /hpf (NONE SEEN) 05/20/17 16:40 Urine Mucus Many 05/19/17 15:00 RPR Titer Reactive 1:8 (NONREACTIVE) H 05/20/17 08:00 T.pallidum Ab (MHA) Previously reactive (NONREACTIVE) 05/20/17 08:00 Assessment: 05/21/17 14:45 WITHDRAWAL SYMPTOM Plan: CONTINUE DETOX
[2017-05-21] MEDS: diazePAM 5 MG TABLET PO PRN (15:49)
[2017-05-21] MEDS: hydrOXYzine PAMOATE 25 MG CAPSULE (FP) PO PRN (19:04)
[2017-05-21] MEDS: THIAMINE HCL 100 MG TABLET (FP) PO SCH (22:26)
[2017-05-21] MEDS: ZOLPIDEM TARTRATE 10 MG TABLET (PARK CARE ONLY) PO PRN (22:26)
[2017-05-21] MEDS: LIDOCAINE PATCH REMOVAL MC SCH (22:57)
[2017-05-22] MEDS ORDERED: METHADONE HCL 10 MG TABLET ONE (05:28)
[2017-05-22] MEDS ORDERED: METHADONE HCL 40 MG DISPERSABLE TABLET ONE (05:28)
[2017-05-22] MEDS: CYCLOBENZAPRINE HCL 10 MG TABLET (FP) PO PRN (05:44)
[2017-05-22] MEDS: hydrOXYzine PAMOATE 25 MG CAPSULE (FP) PO PRN (05:44)
[2017-05-22] MEDS ORDERED: METHADONE 40 MG, METHADONE 10 MG PO SCH (06:00)
[2017-05-22 06:57] VITALS: BP 103/64; PULSE 65; TEMP 97.9
[2017-05-22] MEDS: diazePAM 5 MG TABLET PO PRN (07:45)
--- NOTE | 2017-05-22 09:39 | PN ---
BHS Progress Note Note: pt states she feels good and needs to go to her mmtp program. Pt will be d/c today.
--- NOTE | 2017-05-22 09:44 | DS ---
[facility] Detox Discharge Summary Admission Date: 05/19/17 Discharge Date: 05/22/17 - History Present History: Alcohol Dependence, Sedative Dependence, MMTP - Physical Exam Results Vital Signs: Vital Signs Temperature 97.9 F 05/22/17 06:56 Pulse Rate 65 05/22/17 06:56 Respiratory Rate 18 05/22/17 06:56 Blood Pressure 103/64 05/22/17 06:56 O2 Sat by Pulse Oximetry (%) - Treatment Hospital Course: Detox Protocol Followed, Detoxed Safely, Responded well, Discharged Condition Good, Rehab Referral Accepted - Medication Discharge Medications: Ambulatory Orders NK [No Known Home Medication] 05/19/17 - Diagnosis (1) Alcohol dependence with uncomplicated withdrawal Current Visit: Yes Status: Chronic (2) Insomnia Current Visit: Yes Status: Chronic (3) Opioid dependence on agonist therapy Current Visit: Yes Status: Acute (4) Opioid dependence with withdrawal Current Visit: Yes Status: Acute (5) Sedative/hypnotic withdrawal without complication Current Visit: Yes Status: Chronic (6) Substance induced mood disorder Current Visit: Yes Status: Acute (7) Weight loss Current Visit: Yes Status: Acute (8) H/O knee surgery Current Visit: Yes Status: Chronic (9) Hepatitis C Current Visit: Yes Status: Chronic Qualifiers: Hepatic coma status: without hepatic coma (10) History of back surgery Current Visit: Yes Status: Chronic (11) PTSD (post-traumatic stress disorder) Current Visit: Yes Status: Chronic (12) S/P laparoscopic cholecystectomy Current Visit: Yes Status: Chronic (13) Syphilis Current Visit: Yes Status: Resolved (14) Substance-induced sleep disorder Current Visit: No Status: Acute (15) Depression Current Visit: No Status: Chronic Qualifiers: Major depression episode severity: unspecified (16) Methadone maintenance therapy patient Current Visit: Yes Status: Chronic (17) Nicotine dependence Current Visit: Yes Status: Chronic Qualifiers: Nicotine product type: cigarettes Substance use status: uncomplicated Qualified Code(s): F17.210 - Nicotine dependence, cigarettes, uncomplicated - AMA Did Patient Leave Against Medical Advice: No
[2017-05-22] MEDS: diazePAM 5 MG TABLET PO SCH (09:45)
[2017-05-22] MEDS: cloNIDine HCL 0.1 MG TABLET PO SCH (09:45)
[2017-05-22] MEDS: PRENATAL VITAMINS W/ FOLIC ACID TABLET (FP) PO SCH (09:45)
[2017-05-23] MEDS ORDERED: diazePAM 5 MG TABLET PO SCH (10:00)
== END 2017-05-22 10:25 | disposition home or self-care (01) | DRG 897 ==
LOC: YASAS 09:31 → Y6N 13:52
PROVIDERS: ADMIT Internal Medicine; ATTEND Internal Medicine
PROC: HZ2ZZZZ Detoxification Services for Substance Abuse Treatment (ICD-10-PCS; principal; 2017-05-19)
DX: F10.230 Alcohol dependence with withdrawal, uncomplicated (principal); F11.20 Opioid dependence, uncomplicated; F13.20 Sedative, hypnotic or anxiolytic dependence, uncomplicated; F19.282 Other psychoactive substance dependence with psychoactive substance-induced sleep disorder; F17.210 Nicotine dependence, cigarettes, uncomplicated; F32.9 Major depressive disorder, single episode, unspecified; F43.10 Post-traumatic stress disorder, unspecified; F19.24 Other psychoactive substance dependence with psychoactive substance-induced mood disorder; G47.00 Insomnia, unspecified; B18.2 Chronic viral hepatitis C; I49.9 Cardiac arrhythmia, unspecified; Z88.6 Allergy status to analgesic agent; Z98.890 Other specified postprocedural states; Z87.42 Personal history of other diseases of the female genital tract; Z87.898 Personal history of other specified conditions
CPT/HCPCS: 36415; 80053; 81003; 81015; 85027; 86593; 86780; 93005; 93010

== ENCOUNTER 2018-07-23 10:49 | Inpatient (IN) | payer OTHER ==
[2018-07-23 11:12] VITALS: BMI 34.7
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
[2018-07-23] MEDS ORDERED: ACETAMINOPHEN 325 MG TABLET (FP) PO PRN (12:07)
[2018-07-23] MEDS ORDERED: MAG HYDROX/AL HYDROX/SIMETH 30 ML UNIT-DOSE CUP PO PRN (12:07)
[2018-07-23] MEDS ORDERED: NICOTINE POLACRILEX 2 MG GUM BC PRN (12:07)
[2018-07-23] MEDS ORDERED: P-EPHED 60MG/TRIPROLIDI 2.5MG TABLET PO PRN (12:07)
[2018-07-23] MEDS ORDERED: LOPERAMIDE HCL 2 MG CAPSULE PO PRN (12:07)
[2018-07-23] MEDS ORDERED: MAGNESIUM HYDROX 2400MG/30ML ORAL SUSPENSION 30 ML CUP PO PRN (12:07)
[2018-07-23] MEDS ORDERED: guaiFENesin/D-METHORPHAN HB 10 ML UNIT-DOSE CUPS PO PRN (12:07)
[2018-07-23] MEDS ORDERED: MENTHOL/PHENOL 1 EACH UD MM PRN (12:07)
[2018-07-23] MEDS ORDERED: MAGNESIUM CITRATE 300 ML BOTTLE PO PRN (12:07)
[2018-07-23] MEDS ORDERED: IBUPROFEN 400 MG TABLET (FP) PO PRN (12:07)
[2018-07-23] MEDS ORDERED: diazePAM 5 MG TABLET PO ONE (13:30)
[2018-07-23] MEDS: diazePAM 5 MG TABLET PO SCH ×2 (13:37→22:23)
[2018-07-23] MEDS: CYCLOBENZAPRINE HCL 10 MG TABLET (FP) PO PRN ×2 (13:45→22:23)
[2018-07-23] MEDS: NICOTINE 21 MG/24 HOURS TOPICAL PATCH TD SCH (13:46)
--- NOTE | 2018-07-23 15:06 | CONSULT ---
[facility] Psychiatric Consult - Data Date of interview: 07/23/18 Admission source: [facility] Identifying data: This is a 52 years old female, , mothe rof three, living with family, on SSD, withy no psychiatric hospitalization history, history of PTSD, with Xanax and Heroin dependence, currently on mmtp 70 mgs/day , reports withdrawal symptom, seeking detox. Substance Abuse History: Smoking history: Current some day smoker. Have you smoked in the past 12 months: Yes. Aproximately how many cigarettes per day: 20. Cigars Per Day: 0. Hx Chewing Tobacco Use: No. Initiated information on smoking cessation: Yes. 'Breaking Loose' booklet given: 07/23/18. - Substance & Tx. History. Hx Alcohol Use: No. Hx Substance Use: Yes. Substance Use Type : Heroin, Tranquilizers. Hx Substance Use Treatment: Yes ([facility] 03/16/18) Medical History: MMTP 70mg per day, Hypercholesterolemia, Right rotator Cuff injury, Both Knees injury history, LBP, HepC+, Weight loss history,[id number] history. Psychiatric History: Patient reports history of PTSD, anxiety and depression, reports no psychiatric hospitalization history, reports insomnia, repors taking Ambien 10mg prior to admission. Patient denies suicidal and homicidal history. Physical/Sexual Abuse/Trauma History: Denies Additional Comment: Ambien po prn qhs for insomnia Mental Status Exam - Mental Status Exam Alert and Oriented to: Person Cognitive Function: Fair Patient Appearance: Unkempt Mood: Apprehensive Affect: Mood Congruent Patient Behavior: Cooperative Speech Pattern: Appropriate Voice Loudness: Normal Thought Process: Goal Oriented Thought Disorder: Being Controlled Hallucinations: Denies Suicidal Ideation: Denies Homicidal Ideation: Denies Insight/Judgement: Fair Sleep: Difficulty falling asleep Appetite: Weight gain Muscle strength/Tone: Normal Gait/Station: Shuffling Additional Comments: Ambien po prn qhs for insomnia Psychiatric Findings - Problem List ([place] 1, 2,3) (1) Heroin abuse Current Visit: Yes Status: Acute (2) Nicotine dependence Current Visit: No Status: Acute Qualifiers: Nicotine product type: cigarettes Substance use status: in withdrawal Qualified Code(s): F17.213 - Nicotine dependence, cigarettes, with withdrawal (3) Opioid dependence Current Visit: No Status: Acute (4) Opioid dependence on agonist therapy Current Visit: No Status: Acute (5) Opioid dependence with withdrawal Current Visit: No Status: Acute (6) Sedative/hypnotic withdrawal without complication Current Visit: No Status: Acute (7) Substance induced mood disorder Current Visit: No Status: Acute (8) Substance-induced sleep disorder Current Visit: No Status: Acute (9) Weight loss Current Visit: No Status: Acute (10) Depression Current Visit: No Status: Chronic Qualifiers: Major depression episode severity: unspecified (11) History of syphilis Current Visit: No Status: Chronic (12) Methadone maintenance therapy patient Current Visit: No Status: Chronic (13) Hepatitis C Current Visit: No Status: Resolved Qualifiers: Viral hepatitis chronicity: unspecified Hepatic coma status: without hepatic coma Qualified Code(s): B19.20 - Unspecified viral hepatitis C without hepatic coma Comment: received treatment (rebeka) now undetected - Initial Treatment Plan Initial Treatment Plan: Ambien po prn qhs for insomnia
[2018-07-23] MEDS: diazePAM 5 MG TABLET PO PRN (17:10)
[2018-07-23] MEDS ORDERED: MELATONIN 5 MG TABLETS PO PRN (22:00)
[2018-07-23] MEDS: THIAMINE HCL 100 MG TABLET (FP) PO SCH (22:23)
[2018-07-23] MEDS: ZOLPIDEM TARTRATE 10 MG TABLET (PARK CARE ONLY) PO PRN (22:23)
[2018-07-24] MEDS: diazePAM 5 MG TABLET PO PRN ×2 (01:03→10:26)
[2018-07-24] MEDS ORDERED: TRIMETHOBENZAMIDE HCL 200MG/2ML INJ IM ONE ×2 (01:40→18:30)
--- NOTE | 2018-07-24 01:44 | PN ---
[facility] Progress Note Note: Patient reported nausea and vomited x 1. Vital Signs Temperature 98.1 F 07/23/18 23:39 Pulse Rate 76 07/23/18 23:39 Respiratory Rate 18 07/23/18 23:39 Blood Pressure 115/56 L 07/23/18 23:39 O2 Sat by Pulse Oximetry (%) Action: Tigan 200mg intramuscular ordered.
[2018-07-24] MEDS: diazePAM 5 MG TABLET PO SCH ×3 (06:02→22:58)
[2018-07-24] MEDS ORDERED: METHADONE HCL 10 MG TABLET PO SCH (06:15)
[2018-07-24] MEDS ORDERED: METHADONE 40 MG, METHADONE 20 MG PO SCH (06:15)
[2018-07-24] MEDS ORDERED: METHADONE HCL 40 MG DISPERSABLE TABLET ONE (06:16)
[2018-07-24] MEDS ORDERED: METHADONE HCL 10 MG TABLET ONE (06:16)
[2018-07-24] MEDS: METHADONE 40 MG, METHADONE 30 MG PO SCH (06:17)
[2018-07-24] MEDS ORDERED: ONDANSETRON *ODT* 4 MG TABLET SL ONE (06:58)
--- NOTE | 2018-07-24 06:58 | PN ---
[facility] Progress Note Note: Patient complained of nausea. Denies vomiting at this time. Vital Signs Temperature 97.7 F 07/24/18 06:34 Pulse Rate 55 L 07/24/18 06:34 Respiratory Rate 18 07/24/18 06:34 Blood Pressure 141/100 07/24/18 06:34 O2 Sat by Pulse Oximetry (%) Action:Zofran 4mg sublingual ordered
[2018-07-24 10:22] LABS: MCH 28.4 pg (25.7-33.7); MCHC 31.9 g/dl (32.0-36.0); MEAN CELL VOLUME 89.1 fl (80-96); MEAN PLT VOLUME 12.1 fl (7.5-11.1); PLATELET COUNT 96 K/MM3 (134-434); RBC 5.27 M/mm3 (3.60-5.2); RDW 16.1 % (11.6-15.6); WHITE BLOOD COUNT 9.3 K/mm3 (4.0-10.0)
[2018-07-24] MEDS: PRENATAL VITAMINS W/ FOLIC ACID TABLET (FP) PO SCH (10:26)
[2018-07-24] MEDS: ONDANSETRON *ODT* 4 MG TABLET SL PRN ×2 (10:26→17:15)
[2018-07-24] MEDS: NICOTINE 21 MG/24 HOURS TOPICAL PATCH TD SCH (10:27)
[2018-07-24 10:57] LABS: ALBUMIN 3.9 g/dl (3.4-5.0); ALK PHOS 76 U/L (45-117); ANION GAP 9 MMOL/L (8-16); BILIRUBIN,TOTAL 0.5 mg/dL (0.2-1); BLOOD UREA NITROGEN 15 mg/dL (7-18); CALCIUM 8.7 mg/dL (8.5-10.1); CHLORIDE 102 mmol/L (98-107); CO2 27 mmol/L (21-32); CREATININE 0.7 mg/dL (0.55-1.3); GLUCOSE,RANDOM 108 mg/dL (74-106); SGOT/AST 31 U/L (15-37); SGPT/ALT 42 U/L (13-61); SODIUM 137 mmol/L (136-145)
[2018-07-24 12:11] LABS: RPR REACTIVE 1:1 (NONREACTIVE)
[2018-07-24 12:13] LABS: TREPONEMA ANTIBODY PREVIOUSLY REACTIVE (NONREACTIVE)
--- NOTE | 2018-07-24 12:20 | PN ---
S CIWA - CIWA Score Nausea/Vomitin-Mild Nausea/No Vomiting Muscle Tremors: 3 Anxiety: 3 Agitation: 4-Moderately Restless Paroxysmal Sweats: 3 Orientation: 0-Oriented Tacttile Disturbances: 0-None Auditory Disturbances: 0-None Visual Disturbances: 0-None Headache: 0-None Present CIWA-Ar Total Score: 14 BHS Progress Note (SOAP) Subjective: nausea sweats mild shakes interrupted sleep Objective: 07/24/18 12:20 Vital Signs Temperature 97.9 F 07/24/18 09:30 Pulse Rate 56 L 07/24/18 09:30 Respiratory Rate 20 07/24/18 09:30 Blood Pressure 134/74 07/24/18 09:30 O2 Sat by Pulse Oximetry (%) Laboratory Tests 07/24/18 07/24/18 07/24/18 05:30 05:30 05:30 WBC 9.3 RBC 5.27 H Hgb 15.0 Hct 47.0 H MCV 89.1 MCH 28.4 MCHC 31.9 L RDW 16.1 H Plt Count 96 L D MPV 12.1 H Sodium 137 Potassium 4.0 Chloride 102 Carbon Dioxide 27 Anion Gap 9 BUN 15 Creatinine 0.7 Creat Clearance w eGFR > 60 Random Glucose 108 H Calcium 8.7 Total Bilirubin 0.5 AST 31 ALT 42 Alkaline Phosphatase 76 Total Protein 8.0 Albumin 3.9 RPR Titer Reactive 1:1 H D T.pallidum Ab (MHA) Previously reactive aaox3 ambulating no acute distress rest of labs pending Assessment: 07/24/18 12:20 withdrawal sx Plan: continue detox increase fluids kali mireles prn
--- NOTE | 2018-07-24 13:01 | EKG ---
Test Reason : Blood Pressure : / mmHG Vent. Rate : 078 BPM Atrial Rate : 078 BPM P-R Int : 138 ms QRS Dur : 082 ms QT Int : 376 ms P-R-T Axes : 055 008 017 degrees QTc Int : 428 ms NORMAL SINUS RHYTHM WITH SINUS ARRHYTHMIA NORMAL ECG Confirmed by MD STEVE, JEEVAN (2012) on 07/24/2018 1:00:42 PM Referred By: Confirmed By:JEEVAN WILSON MD
[2018-07-24 16:13] LABS: URINE APPEARANCE SLCLOUDY; URINE BILIRUBIN NEGATIVE (<2.0 mg/dL); URINE COLOR AMBER; URINE GLUCOSE (UA) NEGATIVE (NEGATIVE); URINE KETONE NEGATIVE (NEGATIVE); URINE LEUK ESTERASE TRACE (NEGATIVE); URINE NITRITE NEGATIVE (NEGATIVE); URINE PROTEIN 1+ (NEGATIVE); URINE UROBILINOGEN 4.0 E.U/dl mg/dL (0.2-1.0)
[2018-07-24 16:28] LABS: EPI CELLS RARE /HPF (FEW); URINE MUCUS RARE
[2018-07-24] MEDS: hydrOXYzine PAMOATE 50 MG CAPSULE (FP) PO PRN ×2 (17:15→22:58)
--- NOTE | 2018-07-24 18:15 | PN ---
[facility] Progress Note Note: Vital Signs Temperature 97.7 F 07/24/18 17:58 Pulse Rate 83 07/24/18 17:58 Respiratory Rate 18 07/24/18 17:58 Blood Pressure 100/63 07/24/18 17:58 O2 Sat by Pulse Oximetry (%) patient vomiting one time dose tigan fluids as tolerated continue to monitor
[2018-07-24] MEDS: THIAMINE HCL 100 MG TABLET (FP) PO SCH (22:58)
[2018-07-24] MEDS: ZOLPIDEM TARTRATE 10 MG TABLET (PARK CARE ONLY) PO PRN (22:58)
[2018-07-24] MEDS: CYCLOBENZAPRINE HCL 10 MG TABLET (FP) PO PRN (22:58)
[2018-07-25] MEDS ORDERED: METHADONE HCL 40 MG DISPERSABLE TABLET ONE (02:57)
[2018-07-25] MEDS ORDERED: METHADONE HCL 10 MG TABLET ONE (02:58)
[2018-07-25] MEDS: diazePAM 5 MG TABLET PO PRN ×3 (05:25→18:37)
[2018-07-25] MEDS: ONDANSETRON *ODT* 4 MG TABLET SL PRN (05:46)
[2018-07-25] MEDS: METHADONE 40 MG, METHADONE 30 MG PO SCH (06:31)
[2018-07-25] MEDS: diazePAM 5 MG TABLET PO SCH ×2 (09:52→22:06)
[2018-07-25] MEDS: PRENATAL VITAMINS W/ FOLIC ACID TABLET (FP) PO SCH (09:52)
[2018-07-25] MEDS: NICOTINE 21 MG/24 HOURS TOPICAL PATCH TD SCH (09:53)
[2018-07-25] MEDS ORDERED: METOCLOPRAMIDE HCL 10 MG TABLET (FP) PO ONE (10:21)
[2018-07-25] MEDS ORDERED: METHADONE HCL 10 MG TABLET PO ONE (11:31)
--- NOTE | 2018-07-25 11:52 | PN ---
S CIWA - CIWA Score Nausea/Vomitin-No Nausea/No Vomiting Muscle Tremors: 4-Moderate,w/Arms Extend Anxiety: 3 Agitation: 3 Paroxysmal Sweats: 2 Orientation: 0-Oriented Tacttile Disturbances: 0-None Auditory Disturbances: 0-None Visual Disturbances: 0-None Headache: 0-None Present CIWA-Ar Total Score: 12 S Progress Note (SOAP) Subjective: nausea/vomiting sweats agitation interrupted sleep Objective: 07/25/18 11:51 Vital Signs Temperature 98.2 F 07/25/18 09:35 Pulse Rate 79 07/25/18 09:35 Respiratory Rate 18 07/25/18 09:35 Blood Pressure 100/66 07/25/18 09:35 O2 Sat by Pulse Oximetry (%) Laboratory Tests 07/24/18 07/24/18 07/24/18 05:30 05:30 05:30 WBC 9.3 RBC 5.27 H Hgb 15.0 Hct 47.0 H MCV 89.1 MCH 28.4 MCHC 31.9 L RDW 16.1 H Plt Count 96 L D MPV 12.1 H Sodium 137 Potassium 4.0 Chloride 102 Carbon Dioxide 27 Anion Gap 9 BUN 15 Creatinine 0.7 Creat Clearance w eGFR > 60 Random Glucose 108 H Calcium 8.7 Total Bilirubin 0.5 AST 31 ALT 42 Alkaline Phosphatase 76 Total Protein 8.0 Albumin 3.9 Urine Color Urine Appearance Urine pH Ur Specific [place] Urine Protein Urine Glucose (UA) Urine Ketones Urine Blood Urine Nitrite Urine Bilirubin Urine Urobilinogen Ur Leukocyte Esterase Urine WBC (Auto) Urine RBC (Auto) Ur Epithelial Cells Urine Mucus RPR Titer Reactive 1:1 H D T.pallidum Ab ([facility]) Previously reactive 07/24/18 11:45 WBC RBC Hgb Hct MCV MCH MCHC RDW Plt Count MPV Sodium Potassium Chloride Carbon Dioxide Anion Gap BUN Creatinine Creat Clearance w eGFR Random Glucose Calcium Total Bilirubin AST ALT Alkaline Phosphatase Total Protein Albumin Urine Color [place] Urine Appearance Slcloudy Urine pH 7.0 D Ur Specific [place] 1.023 Urine Protein 1+ H Urine Glucose (UA) Negative Urine Ketones Negative Urine Blood Negative Urine Nitrite Negative Urine Bilirubin Negative Urine Urobilinogen 4.0 e.u/dl H Ur Leukocyte Esterase Trace Urine WBC (Auto) 7 Urine RBC (Auto) 8 Ur Epithelial Cells Rare Urine Mucus Rare RPR Titer T.pallidum Ab ([facility]) aaox3 ambulating no acute distress Assessment: 07/25/18 11:52 withdrawal sx Plan: continue detox increase fluids reglan 10mg x one ordered zofran and tigan d/c pt states its not working. will order reglan 10mg prn
[2018-07-25] MEDS: METOCLOPRAMIDE HCL 10 MG TABLET (FP) PO SCH (17:33)
[2018-07-25] MEDS: THIAMINE HCL 100 MG TABLET (FP) PO SCH (22:06)
[2018-07-26] MEDS: diazePAM 5 MG TABLET PO PRN ×2 (01:27→06:48)
[2018-07-26] MEDS ORDERED: METHADONE HCL 40 MG DISPERSABLE TABLET ONE (04:43)
[2018-07-26] MEDS ORDERED: METHADONE HCL 10 MG TABLET ONE (04:43)
[2018-07-26] MEDS: METHADONE 40 MG, METHADONE 30 MG PO SCH (05:29)
[2018-07-26] MEDS: METOCLOPRAMIDE HCL 10 MG TABLET (FP) PO SCH (06:04)
[2018-07-26 07:22] VITALS: BP 109/59; PULSE 63; TEMP 97.7
--- NOTE | 2018-07-26 08:34 | DS ---
[facility] Detox Discharge Summary Admission Date: 07/23/18 Discharge Date: 07/26/18 - History Present History: Sedative Dependence, MMTP - Physical Exam Results Vital Signs: Vital Signs Temperature 97.7 F 07/26/18 07:22 Pulse Rate 63 07/26/18 07:22 Respiratory Rate 18 07/26/18 07:22 Blood Pressure 109/59 L 07/26/18 07:22 O2 Sat by Pulse Oximetry (%) - Treatment Hospital Course: Detox Protocol Followed, Detoxed Safely, Responded well, Discharged Condition Good, Rehab Referral Accepted Patient has Accepted a Rehab Referral to: pt has appt to go to [facility] for therapy - Medication Discharge Medications: Ambulatory Orders NK [No Known Home Medication] 07/23/18 - Diagnosis (1) Low back pain Current Visit: Yes Status: Chronic Qualifiers: Chronicity: chronic (2) Uncomplicated sedative, hypnotic or anxiolytic withdrawal Current Visit: Yes Status: Chronic (3) Anxiety Current Visit: No Status: Acute (4) Nicotine dependence Current Visit: Yes Status: Chronic Qualifiers: Nicotine product type: cigarettes Substance use status: uncomplicated Qualified Code(s): F17.210 - Nicotine dependence, cigarettes, uncomplicated (5) Opioid dependence on agonist therapy Current Visit: No Status: Acute (6) Opioid dependence with withdrawal Current Visit: Yes Status: Chronic (7) Sedative/hypnotic withdrawal without complication Current Visit: Yes Status: Chronic (8) Substance induced mood disorder Current Visit: Yes Status: Acute (9) Substance-induced sleep disorder Current Visit: No Status: Acute (10) Weight loss Current Visit: No Status: Acute (11) Alcohol dependence with uncomplicated withdrawal Current Visit: Yes Status: Chronic (12) Depressed affect Current Visit: No Status: Chronic (13) Depression Current Visit: No Status: Chronic Qualifiers: Major depression episode severity: unspecified (14) H/O knee surgery Current Visit: No Status: Chronic (15) History of back surgery Current Visit: No Status: Chronic (16) History of syphilis Current Visit: No Status: Suspected (17) Insomnia Current Visit: No Status: Chronic (18) Methadone maintenance therapy patient Current Visit: Yes Status: Chronic (19) PTSD (post-traumatic stress disorder) Current Visit: No Status: Chronic (20) S/P laparoscopic cholecystectomy Current Visit: No Status: Chronic (21) Hepatitis C Current Visit: No Status: Resolved Qualifiers: Viral hepatitis chronicity: unspecified Hepatic coma status: without hepatic coma Qualified Code(s): B19.20 - Unspecified viral hepatitis C without hepatic coma - AMA Did Patient Leave Against Medical Advice: No (referred to [facility])
[2018-07-27] MEDS ORDERED: diazePAM 5 MG TABLET PO SCH (10:00)
== END 2018-07-26 08:58 | disposition home or self-care (01) | DRG 897 ==
LOC: YASAS 10:49 → Y6N 12:17
PROC: HZ2ZZZZ Detoxification Services for Substance Abuse Treatment (ICD-10-PCS; principal; 2018-07-23)
DX: F13.230 Sedative, hypnotic or anxiolytic dependence with withdrawal, uncomplicated (principal); F11.20 Opioid dependence, uncomplicated; F19.282 Other psychoactive substance dependence with psychoactive substance-induced sleep disorder; F17.210 Nicotine dependence, cigarettes, uncomplicated; F41.9 Anxiety disorder, unspecified; F19.24 Other psychoactive substance dependence with psychoactive substance-induced mood disorder; F32.9 Major depressive disorder, single episode, unspecified; F43.10 Post-traumatic stress disorder, unspecified; M54.5 Low back pain; G89.29 Other chronic pain; G47.00 Insomnia, unspecified; B19.20 Unspecified viral hepatitis C without hepatic coma; Z86.69 Personal history of other diseases of the nervous system and sense organs; Z87.42 Personal history of other diseases of the female genital tract; Z87.898 Personal history of other specified conditions
CPT/HCPCS: 36415; 80053; 81003; 81015; 85027; 86593; 86780; 93005; 93010; Q0162

== ENCOUNTER 2019-03-29 09:50 | Inpatient (IN) | payer OTHER ==
[2019-03-29 10:16] VITALS: BMI 26.4
--- NOTE | 2019-03-29 11:48 | HP ---
CIWA Score Nausea/Vomitin-No Nausea/No Vomiting Muscle Tremors: 2 Anxiety: 4-Mod. Anxious/Guarded Agitation: 1-Slight > Activity Paroxysmal Sweats: 2 Orientation: 3-Disoriented Date>2 days Tacttile Disturbances: 0-None Auditory Disturbances: 2-Mild Harshness/Frighten Visual Disturbances: 2-Mild Sensitivity Headache: 0-None Present CIWA-Ar Total Score: 16 - Admission Criteria OASAS Guidelines: Admission for Medically Managed Detox: Requires at least one of the followin. CIWA greater than 12 2. Seizures within the past 24 hours 3. Delirium tremens within the past 24 hours 4. Hallucinations within the past 24 hours 5. Acute intervention needed for co occurring medical disorder 6. Acute intervention needed for co occurring psychiatric disorder 7. Severe withdrawal that cannot be handled at a lower level of care (continued vomiting, continued diarrhea, abnormal vital signs) requiring intravenous medication and/or fluids 8. Admission ROS S - HPI Allergies/Adverse Reactions: Allergies Allergy/AdvReac Type Severity Reaction Status Date / Time acetaminophen [From Tylenol] Allergy Severe Rash Verified 07/23/18 11:49 aspirin Allergy Severe Rash Verified 07/23/18 11:49 celecoxib [From Celebrex] Allergy Severe Rash Verified 07/23/18 11:49 codeine Allergy Severe Rash Verified 07/23/18 11:49 ibuprofen Allergy Severe Verified 07/23/18 11:49 trazodone Allergy Severe Rash Verified 03/29/19 10:03 History of Present Illness: pt here requesting detox from [facility] , reports use 3 x/week 1/4 liquor , denies seizures , tremors or blackouts , reports if she does not drink " nothing happens , I am not a big drinker " , xanax use : 5 pills/day x 1 year , reports symptoms as above if not using , increasing anxiety , denies seizures heroin : 10-15 vbags/day via inhalation tobacco ; 1 ppd pmhx : anxiety , depression pshx : l-spine , knees pola, vale , hernia Exam Limitations: No Limitations - Ebola screening Have you traveled outside of the country in the last 21 days: No Have you had contact with anyone from an Ebola affected area: No Do you have a fever: No - Review of Systems Constitutional: See HPI EENT: reports: See HPI Respiratory: reports: No Symptoms reported Cardiac: reports: No Symptoms Reported GI: reports: See HPI : reports: No Symptoms Reported Musculoskeletal: reports: See HPI, Back Pain, Joint Pain Integumentary: reports: No Symptoms Reported Neuro: reports: No Symptoms reported Endocrine: reports: No Symptoms Reported Psychiatric: reports: Orientated x3, Anxious Patient History - Patient Medical History Hx Anemia: No Hx Asthma: No Hx Chronic Obstructive Pulmonary Disease (COPD): No Hx Cancer: No Hx Cardiac Disorders: No Hx Congestive Heart Failure: No Hx Hypertension: No Hx Hypercholesterolemia: No Hx Pacemaker: No HX Cerebrovascular Accident: No Hx Seizures: Yes (drug related once 03/15/2018) Hx Dementia: No Hx Diabetes: No Hx Gastrointestinal Disorders: No Hx Liver Disease: No Hx Genitourinary Disorders: No Hx Sexually Transmitted Disorders: Yes (history of syphylis treated at age 14) Hx Renal Disease (ESRD): No Hx Thyroid Disease: No Hx Human Immunodeficiency Virus (HIV): No (10/18 negative last tested) Hx Hepatitis C: Yes (was treated successfully undetecable) Hx Depression: Yes Hx Suicide Attempt: No Hx Bipolar Disorder: No Hx Schizophrenia: No - Patient Surgical History Past Surgical History: Yes Hx Neurologic Surgery: No Hx Cataract Extraction: No Hx Cardiac Surgery: No Hx Lung Surgery: No Hx Breast Surgery: No Hx Breast Biopsy: No Hx Abdominal Surgery: No Hx Appendectomy: No Hx Cholecystectomy: Yes (2003 laparoscopic) Hx Genitourinary Surgery: No Hx Section: No Hx Orthopedic Surgery: Yes (right rotator cuff, right knee,left knee) Hx Hysterectomy: No Other Surgical History: lower back Anesthesia Reaction: No - PPD History Date: 05/21/17 Results: 0 mm - Reproductive History Last Menstrual Period: 09/22/15 - Smoking Cessation Smoking history: Current some day smoker Have you smoked in the past 12 months: Yes Aproximately how many cigarettes per day: 20 Cigars Per Day: 0 Hx Chewing Tobacco Use: No Initiated information on smoking cessation: No - Substances abused Alcohol Substance route: Oral Frequency: 1-3 times last 30 days Amount used: 1pint of Ayan foster Age of first use: 15 Date of last use: 03/27/19 Family Disease History - Family Disease History Family Disease History: Other: Father (heroin, crack), Mother (MMTP) Admission Physical Exam BHS - Vital Signs Vital Signs: Vital Signs - 24 hr 03/29/19 03/29/19 10:05 10:43 Temperature 97.8 F 97.8 F Pulse Rate 74 74 Respiratory 18 18 Rate Blood Pressure 118/63 118/63 - Physical General Appearance: Yes: Mild Distress, Anxious HEENTM: Yes: Normocephalic, Normal Voice Respiratory: Yes: Normal Breath Sounds, No Respiratory Distress, No Accessory Muscle Use Neck: Yes: No masses,lesions,Nodules, Trachea in good position Cardiology: Yes: Regular Rhythm, Regular Rate, S1, S2 Abdominal: Yes: Normal Bowel Sounds, Soft Musculoskeletal: Yes: Back pain Neurological: Yes: Alert, Motor Strength 5/5 Integumentary: Yes: Warm - Diagnostic (1) Opioid dependence on agonist therapy Current Visit: Yes Status: Chronic (2) Nicotine dependence Current Visit: Yes Status: Chronic Qualifiers: Nicotine product type: cigarettes (3) Sedative/hypnotic withdrawal without complication Current Visit: Yes Status: Acute Breathalyzer - Breathalyzer Breathalyzer: 0 Urine Drug Screen - Test Device Lot number: [id number] Expiration date: 11/29/20 - Control Is test valid?: Yes - Results Drug screen NEGATIVE: No Urine drug screen results: MET-Methamphetamine, FEN-Fentanyl, MOP-Opiates, OXY- Oxycodone, MTD-Methadone, BZO-Benzodiazepines Inpatient Rehab Admission - Rehab Decision to Admit Inpatient rehab admission?: No
[2019-03-29] MEDS ORDERED: MAG HYDROX/AL HYDROX/SIMETH 30 ML UNIT-DOSE CUP PO PRN (11:50)
[2019-03-29] MEDS ORDERED: MENTHOL/PHENOL 1 EACH UD MM PRN (11:50)
[2019-03-29] MEDS ORDERED: NICOTINE POLACRILEX 2 MG GUM BUC PRN (11:50)
[2019-03-29] MEDS ORDERED: MAGNESIUM HYDROX 2400MG/30ML ORAL SUSPENSION 30 ML CUP PO PRN (11:50)
[2019-03-29] MEDS ORDERED: MAGNESIUM CITRATE 300 ML BOTTLE PO PRN (11:50)
[2019-03-29] MEDS ORDERED: MELATONIN 5 MG TABLETS PO PRN (11:50)
[2019-03-29] MEDS: diazePAM 5 MG TABLET PO SCH ×2 (13:38→22:12)
[2019-03-29] MEDS: hydrOXYzine PAMOATE 25 MG CAPSULE (FP) PO PRN ×2 (13:40→22:13)
[2019-03-29] MEDS: CIPROFLOXACIN 0.3% EYE DROPS 5 ML BOTTLE OD SCH (15:32)
[2019-03-29] MEDS: diazePAM 5 MG TABLET PO PRN (17:20)
[2019-03-29] MEDS ORDERED: TRIMETHOBENZAMIDE HCL 300 MG CAPSULE PO PRN (18:50)
[2019-03-29] MEDS: THIAMINE HCL 100 MG TABLET (FP) PO SCH (22:12)
[2019-03-30] MEDS: diazePAM 5 MG TABLET PO SCH ×3 (05:40→22:32)
[2019-03-30] MEDS: hydrOXYzine PAMOATE 25 MG CAPSULE (FP) PO PRN ×3 (05:40→20:13)
[2019-03-30] MEDS ORDERED: METHADONE HCL 40 MG DISPERSABLE TABLET PO SCH (09:30)
[2019-03-30] MEDS ORDERED: METHADONE 80 MG, METHADONE 10 MG PO SCH ×4 (10:00→11:00)
[2019-03-30 10:22] LABS: BILIRUBIN,TOTAL 0.4 mg/dL (0.2-1); BLOOD UREA NITROGEN 15.3 mg/dL (7-18); CALCIUM 9.4 mg/dL (8.5-10.1); CREATININE 0.9 mg/dL (0.55-1.3); POTASSIUM 4.4 mmol/L (3.5-5.1); TOT PROT 8.2 g/dl (6.4-8.2)
[2019-03-30 10:41] LABS: HEMATOCRIT 46.8 % (32.4-45.2); HEMOGLOBIN 15.7 GM/dL (10.7-15.3); MCH 30.4 pg (25.7-33.7); MCHC 33.5 g/dl (32.0-36.0); MEAN CELL VOLUME 90.6 fl (80-96); MEAN PLT VOLUME 10.8 fl (7.5-11.1); RBC 5.17 M/mm3 (3.60-5.2); RDW 15.1 % (11.6-15.6); WHITE BLOOD COUNT 7.4 K/mm3 (4.0-10.0)
[2019-03-30] MEDS ORDERED: METHADONE HCL 40 MG DISPERSABLE TABLET ONE (11:05)
[2019-03-30] MEDS ORDERED: METHADONE HCL 10 MG TABLET ONE (11:05)
[2019-03-30] MEDS: CIPROFLOXACIN 0.3% EYE DROPS 5 ML BOTTLE OD SCH (11:06)
[2019-03-30] MEDS: NICOTINE 14 MG/24 HOURS TOPICAL PATCH TD SCH (11:07)
[2019-03-30] MEDS: PRENATAL VITAMINS W/ FOLIC ACID TABLET (FP) PO SCH (11:07)
[2019-03-30] MEDS: diazePAM 5 MG TABLET PO PRN ×3 (11:12→23:02)
[2019-03-30] MEDS ORDERED: METHADONE 80 MG, METHADONE 10 MG PO ONE (11:15)
[2019-03-30 11:29] LABS: PLATELET COUNT 110 K/MM3 (134-434)
--- NOTE | 2019-03-30 11:49 | PN ---
S CIWA - CIWA Score Nausea/Vomitin-No Nausea/No Vomiting Muscle Tremors: 2 Anxiety: 3 Agitation: 2 Paroxysmal Sweats: 3 Orientation: 0-Oriented Tacttile Disturbances: 0-None Auditory Disturbances: 0-None Visual Disturbances: 0-None Headache: 2-Mild CIWA-Ar Total Score: 12 S Progress Note (SOAP) Subjective: c/o shakes, sweats, headache, and anxiety. Objective: 03/30/19 11:48 Vital Signs 03/30/19 03/30/19 03/30/19 04:11 06:00 06:56 Temperature 97.9 F Pulse Rate 65 71 65 Respiratory 18 18 18 Rate Blood Pressure 118/79 03/30/19 11:00 Temperature 98.2 F Pulse Rate 57 L Respiratory 18 Rate Blood Pressure 112/71 Lab Results WBC 7.4 K/mm3 (4.0-10.0) 03/30/19 05:45 RBC 5.17 M/mm3 (3.60-5.2) 03/30/19 05:45 Hgb 15.7 GM/dL (10.7-15.3) H 03/30/19 05:45 Hct 46.8 % (32.4-45.2) H 03/30/19 05:45 MCV 90.6 fl (80-96) 03/30/19 05:45 MCHC 33.5 g/dl (32.0-36.0) 03/30/19 05:45 RDW 15.1 % (11.6-15.6) 03/30/19 05:45 Plt Count 110 K/MM3 (134-434) L 03/30/19 05:45 Sodium 140 mmol/L (136-145) 03/30/19 05:45 Potassium 4.4 mmol/L (3.5-5.1) 03/30/19 05:45 Chloride 103 mmol/L (98-107) 03/30/19 05:45 Carbon Dioxide 32 mmol/L (21-32) 03/30/19 05:45 Anion Gap 5 MMOL/L (8-16) L 03/30/19 05:45 BUN 15.3 mg/dL (7-18) 03/30/19 05:45 Creatinine 0.9 mg/dL (0.55-1.3) 03/30/19 05:45 Random Glucose 89 mg/dL (74-106) 03/30/19 05:45 Calcium 9.4 mg/dL (8.5-10.1) 03/30/19 05:45 Labs noted. Assessment: 03/30/19 11:48 AOX3, in no acute distress Full ROM, ambulating in the unit. withdrawal symptoms. Plan: continue detox
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
[2019-03-30 14:12] LABS: RPR REACTIVE 1:1 (NONREACTIVE)
[2019-03-30 14:13] LABS: TREPONEMA ANTIBODY PREVIOUSLY REACTIVE (NONREACTIVE)
[2019-03-30] MEDS: THIAMINE HCL 100 MG TABLET (FP) PO SCH (22:32)
[2019-03-30] MEDS: MIRTAZAPINE 15 MG TABLET (FP) PO SCH (22:33)
[2019-03-31] MEDS: diazePAM 5 MG TABLET PO PRN ×3 (03:02→22:24)
[2019-03-31] MEDS ORDERED: diazePAM 5 MG TABLET PO ONE (06:00)
[2019-03-31] MEDS ORDERED: METHADONE 80 MG, METHADONE 10 MG PO SCH ×2 (06:00)
[2019-03-31] MEDS ORDERED: METHADONE HCL 40 MG DISPERSABLE TABLET ONE (06:05)
[2019-03-31] MEDS ORDERED: METHADONE HCL 10 MG TABLET ONE (06:05)
[2019-03-31] MEDS: hydrOXYzine PAMOATE 25 MG CAPSULE (FP) PO PRN ×2 (06:06→17:58)
[2019-03-31] MEDS: METHADONE 80 MG, METHADONE 10 MG PO SCH (07:54)
[2019-03-31] MEDS: CIPROFLOXACIN 0.3% EYE DROPS 5 ML BOTTLE OD SCH (10:27)
[2019-03-31] MEDS: NICOTINE 14 MG/24 HOURS TOPICAL PATCH TD SCH (10:27)
[2019-03-31] MEDS: PRENATAL VITAMINS W/ FOLIC ACID TABLET (FP) PO SCH (10:28)
[2019-03-31] MEDS: NICOTINE 21 MG/24 HOURS TOPICAL PATCH TD SCH (13:41)
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
[2019-03-31] MEDS: THIAMINE HCL 100 MG TABLET (FP) PO SCH (22:22)
[2019-03-31] MEDS: cloNIDine HCL 0.1 MG TABLET PO PRN (22:22)
[2019-03-31] MEDS: MIRTAZAPINE 15 MG TABLET (FP) PO SCH (22:23)
[2019-04-01] MEDS ORDERED: METHADONE HCL 10 MG TABLET ONE (04:33)
[2019-04-01] MEDS ORDERED: METHADONE HCL 40 MG DISPERSABLE TABLET ONE (04:33)
[2019-04-01] MEDS: METHADONE 80 MG, METHADONE 10 MG PO SCH (05:35)
[2019-04-01] MEDS: diazePAM 5 MG TABLET PO PRN (07:05)
[2019-04-01] MEDS: NICOTINE 21 MG/24 HOURS TOPICAL PATCH TD SCH (09:17)
[2019-04-01] MEDS: CIPROFLOXACIN 0.3% EYE DROPS 5 ML BOTTLE OD SCH (09:17)
[2019-04-01] MEDS: cloNIDine HCL 0.1 MG TABLET PO PRN (09:17)
[2019-04-01] MEDS: hydrOXYzine PAMOATE 25 MG CAPSULE (FP) PO PRN (09:20)
[2019-04-01] MEDS: PRENATAL VITAMINS W/ FOLIC ACID TABLET (FP) PO SCH (09:21)
[2019-04-01 09:30] VITALS: BP 124/74; PULSE 90; TEMP 98.1
--- NOTE | 2019-04-01 09:57 | DS ---
[facility] Detox Discharge Summary Admission Date: 03/29/19 Discharge Date: 04/01/19 - History Present History: Alcohol Dependence, Sedative Dependence, MMTP - Physical Exam Results Vital Signs: Vital Signs Temperature 98.1 F 04/01/19 09:30 Pulse Rate 90 04/01/19 09:30 Respiratory Rate 18 04/01/19 09:30 Blood Pressure 124/74 04/01/19 09:30 O2 Sat by Pulse Oximetry (%) - Treatment Hospital Course: Detox Protocol Followed, Detoxed Safely, Responded well, Discharged Condition Good, Rehab Referral Accepted - Diagnosis (1) Alcohol dependence with uncomplicated withdrawal Current Visit: Yes Status: Chronic (2) Sedative/hypnotic withdrawal without complication Current Visit: Yes Status: Chronic (3) Insomnia Current Visit: Yes Status: Chronic (4) Nicotine dependence Current Visit: Yes Status: Chronic Qualifiers: Nicotine product type: cigarettes Substance use status: uncomplicated Qualified Code(s): F17.210 - Nicotine dependence, cigarettes, uncomplicated (5) PTSD (post-traumatic stress disorder) Current Visit: Yes Status: Chronic (6) Substance induced mood disorder Current Visit: Yes Status: Chronic (7) Anxiety Current Visit: No Status: Acute (8) Substance-induced sleep disorder Current Visit: No Status: Acute (9) Depression Current Visit: No Status: Chronic Qualifiers: Major depression episode severity: unspecified (10) H/O knee surgery Current Visit: Yes Status: Chronic (11) History of back surgery Current Visit: No Status: Chronic (12) Low back pain Current Visit: No Status: Chronic Qualifiers: Chronicity: chronic (13) Methadone maintenance therapy patient Current Visit: Yes Status: Chronic (14) S/P laparoscopic cholecystectomy Current Visit: No Status: Chronic (15) Uncomplicated sedative, hypnotic or anxiolytic withdrawal Current Visit: Yes Status: Chronic (16) History of syphilis Current Visit: Yes Status: Suspected (17) Hepatitis C Current Visit: Yes Status: Chronic Qualifiers: Viral hepatitis chronicity: chronic Hepatic coma status: without hepatic coma Qualified Code(s): B18.2 - Chronic viral hepatitis C - AMA Did Patient Leave Against Medical Advice: No (pt going home; will go back to her MMTP)
== END 2019-04-01 09:40 | disposition home or self-care (01) | DRG 897 ==
LOC: YASAS 09:50 → Y6N 12:28
PROVIDERS: ADMIT Surgery; ATTEND Surgery
PROC: HZ2ZZZZ Detoxification Services for Substance Abuse Treatment (ICD-10-PCS; principal; 2019-03-29)
DX: F10.230 Alcohol dependence with withdrawal, uncomplicated (principal); F11.20 Opioid dependence, uncomplicated; F19.282 Other psychoactive substance dependence with psychoactive substance-induced sleep disorder; F13.230 Sedative, hypnotic or anxiolytic dependence with withdrawal, uncomplicated; F17.210 Nicotine dependence, cigarettes, uncomplicated; F19.24 Other psychoactive substance dependence with psychoactive substance-induced mood disorder; F43.10 Post-traumatic stress disorder, unspecified; F32.9 Major depressive disorder, single episode, unspecified; M54.5 Low back pain; G47.00 Insomnia, unspecified; B18.2 Chronic viral hepatitis C; Z86.19 Personal history of other infectious and parasitic diseases; Z98.890 Other specified postprocedural states
CPT/HCPCS: 36415; 80053; 81025; 85027; 86593; 86780; J0735

== ENCOUNTER 2019-09-29 18:35 | Inpatient (IN) | payer OTHER ==
[2019-09-29 19:36] VITALS: BMI 25.3
--- NOTE | 2019-09-29 20:13 | HP ---
CIWA Score Nausea/Vomitin-No Nausea/No Vomiting Muscle Tremors: 1-None Visible, but [place] Anxiety: 4-Mod. Anxious/Guarded Agitation: 4-Moderately Restless Paroxysmal Sweats: 3 Orientation: 0-Oriented Tacttile Disturbances: 0-None Auditory Disturbances: 0-None Visual Disturbances: 0-None Headache: 0-None Present CIWA-Ar Total Score: 12 - Admission Criteria OASAS Guidelines: Admission for Medically Managed Detox: Requires at least one of the followin. CIWA greater than 12 2. Seizures within the past 24 hours 3. Delirium tremens within the past 24 hours 4. Hallucinations within the past 24 hours 5. Acute intervention needed for co occurring medical disorder 6. Acute intervention needed for co occurring psychiatric disorder 7. Severe withdrawal that cannot be handled at a lower level of care (continued vomiting, continued diarrhea, abnormal vital signs) requiring intravenous medication and/or fluids 8. Patient presents the following: Acute intervention needed for co-occurring med or psych disorder Admission Criteria Met: Admission criteria met Admitting History and Physical - Past Medical History ...LMP: 09/22/15 - Smoking History Smoking history: Current some day smoker Have you smoked in the past 12 months: Yes Aproximately how many cigarettes per day: 20 If you are a former smoker, when did you quit?: 20 - Alcohol/Substance Use Hx Alcohol Use: No Admission ROS [facility] Chief Complaint: seeking xanax detox Allergies/Adverse Reactions: Allergies Allergy/AdvReac Type Severity Reaction Status Date / Time acetaminophen [From Tylenol] Allergy Mild Rash Verified 09/29/19 19:20 aspirin Allergy Mild Rash Verified 09/29/19 19:20 celecoxib [From Celebrex] Allergy Mild Rash Verified 09/29/19 19:20 codeine Allergy Mild Rash Verified 09/29/19 19:20 ibuprofen Allergy Mild Verified 09/29/19 19:20 trazodone Allergy Mild Rash Verified 09/29/19 19:20 History of Present Illness: HERE FOR XANAX DETOX. CLIENT IS SELF REFERRED. KNOWN TO PROGRAM SHE WAS LAST HERE 6 MONTHS AGO. SHE IS ON MMTP.HOME PROGRAM [facility]. CLIENT REPORTS METHADONE DOSE 110 MG DAILY. LAST TAKEN TODAY W/ TAKE HOME BOTTLE. SHE REPORTS RELAPSING 7 MONTHS AGO USING XANAX 20MG DAILY. LAST USE 1 DAY AGOI. SHE ALSO IS ABUSING HEROIN WELL. DENIES IVDU, BLACK OUTS, SEIZURES, DRUG OVERDOSE. REPORTS LONGEST CLEAN TIME 25 YEARS. LIVES ALONE, DISABLED, DENIES LEGALS Exam Limitations: No Limitations - Ebola screening Have you traveled outside of the country in the last 21 days: No (N) Have you had contact with anyone from an Ebola affected area: No Do you have a fever: No - Review of Systems Constitutional: Chills, Loss of Appetite, Malaise, Night Sweats, Changes in sleep EENT: reports: Dental Problems (LOSS TEETH) Respiratory: reports: Shortness of Breath (W/ ANXIETY) Cardiac: reports: No Symptoms Reported GI: reports: Poor Appetite : reports: Other (HESITANCY) Musculoskeletal: reports: Back Pain, Joint Pain Integumentary: reports: Sweating Neuro: reports: Unsteady Gait (CANE PRN DUE TO KNEE PAIN-R) Endocrine: reports: No Symptoms Reported Hematology: reports: No Symptoms Reported Psychiatric: reports: Orientated x3, Anxious, Depressed (DENIES SI) Other Systems: Reviewed and Negative Patient History - Patient Medical History Hx Anemia: No Hx Asthma: No Hx Chronic Obstructive Pulmonary Disease (COPD): No Hx Cancer: No Hx Cardiac Disorders: No Hx Congestive Heart Failure: No Hx Hypertension: No Hx Hypercholesterolemia: No Hx Pacemaker: No HX Cerebrovascular Accident: No Hx Seizures: No Hx Dementia: No Hx Diabetes: No Hx Gastrointestinal Disorders: No Hx Liver Disease: No Hx Genitourinary Disorders: No Hx Sexually Transmitted Disorders: Yes (history of syphylis treated at age 14) Hx Renal Disease (ESRD): No Hx Thyroid Disease: No Hx Human Immunodeficiency Virus (HIV): No Hx Hepatitis C: Yes (was treated successfully undetecable) Hx Depression: Yes Hx Suicide Attempt: No Hx Bipolar Disorder: No Hx Schizophrenia: No - Patient Surgical History Past Surgical History: Yes Hx Neurologic Surgery: No Hx Cataract Extraction: No Hx Cardiac Surgery: No Hx Lung Surgery: No Hx Breast Surgery: No Hx Breast Biopsy: No Hx Abdominal Surgery: No Hx Appendectomy: No Hx Cholecystectomy: Yes (2003 laparoscopic) Hx Genitourinary Surgery: No Hx Section: No Hx Orthopedic Surgery: Yes (right rotator cuff, right knee,left knee) Hx Hysterectomy: No Other Surgical History: lower back Anesthesia Reaction: No - PPD History Previous Implant?: Yes Documented Results: Negative w/proof Implanted On Prior R Admission?: Yes Date: 05/21/17 Results: 0 mm PPD to be Administered?: Yes - Reproductive History Patient is a Female of Child Bearing Age (11 -55 yrs old): Yes Last Menstrual Period: 09/22/15 Patient : No ([facility]) - Smoking Cessation Smoking history: Current every day smoker Have you smoked in the past 12 months: Yes Aproximately how many cigarettes per day: 20 Cigars Per Day: 0 Hx Chewing Tobacco Use: No Initiated information on smoking cessation: Yes 'Breaking Loose' booklet given: 09/29/19 - Substance & Tx. History Hx Alcohol Use: Yes Hx Substance Use: Yes Substance Use Type: Heroin, Prescribed (METHADONE), Tranquilizers (XANAX) Hx Substance Use Treatment: Yes ([facility]) - Substances abused Alprazolam (Xanax) Substance route: Oral Frequency: Daily Amount used: 20MG Age of first use: 50 Date of last use: 09/28/19 Heroin Substance route: Inhalation Frequency: Daily Amount used: 4 bags Age of first use: 53 Date of last use: 09/29/19 Alcohol Substance route: Oral Frequency: 1-3 times last 30 days Amount used: 1pint of andidkaAyan Age of first use: 15 Date of last use: 03/27/19 Admission Physical Exam S - Vital Signs Vital Signs: Vital Signs - 24 hr 09/29/19 09/29/19 19:25 19:50 Temperature 98.2 F 98.2 F Pulse Rate 67 67 Respiratory 16 16 Rate Blood Pressure 119/77 119/77 - Physical General Appearance: Yes: Moderate Distress, Tremorous, Sweating, Anxious HEENTM: Yes: EOMI, Normocephalic, Normal Voice, ANGELIQUE (PUPILS 4MM), Pharynx Normal Respiratory: Yes: Chest Non-Tender, Lungs Clear, Normal Breath Sounds, No Respiratory Distress, No Accessory Muscle Use Neck: Yes: No masses,lesions,Nodules, Supple, Trachea in good position Breast: Yes: Breasts Symetrical Cardiology: Yes: Regular Rhythm, Regular Rate, S1, S2 Abdominal: Yes: Non Tender, Soft, Increased Bowel Sounds, Protuberent Genitourinary: Yes: Within Normal Limits Back: Yes: Surgical Scar Musculoskeletal: Yes: full range of Motion, Gait Steady Extremities: Yes: Normal Capillary Refill, Normal Range of Motion, Non-Tender, Tremors Neurological: Yes: Fully Oriented, Alert, Motor Strength 5/5, Depressed Affect Integumentary: Yes: Cold (COOL), Other (PILORECTION) Lymphatic: Yes: Within Normal Limits - Diagnostic (1) Anxiety Current Visit: Yes Status: Chronic (2) Substance-induced sleep disorder Current Visit: Yes Status: Chronic (3) Depression Current Visit: Yes Status: Chronic Qualifiers: Major depression episode severity: unspecified (4) Insomnia Current Visit: Yes Status: Chronic (5) Low back pain Current Visit: Yes Status: Chronic Qualifiers: Chronicity: chronic (6) Methadone maintenance therapy patient Current Visit: Yes Status: Chronic (7) Nicotine dependence Current Visit: Yes Status: Chronic Qualifiers: Nicotine product type: cigarettes Substance use status: uncomplicated Qualified Code(s): F17.210 - Nicotine dependence, cigarettes, uncomplicated (8) Substance induced mood disorder Current Visit: Yes Status: Suspected (9) Uncomplicated sedative, hypnotic or anxiolytic withdrawal Current Visit: Yes Status: Acute Cleared for Admission [facility] - Detox or Rehab [facility] Level of Care: Medically Managed Detox Regimen/Protocol: Valium Claeared for Rehab Admission: No Breathalyzer - Breathalyzer Breathalyzer: 0 Urine Drug Screen - Test Device Lot number: [id number] Expiration date: 05/01/21 - Control Is test valid?: Yes - Results Drug screen NEGATIVE: No Urine drug screen results: MOP-Opiates, MTD-Methadone, BZO-Benzodiazepines Inpatient Rehab Admission - Rehab Decision to Admit Inpatient rehab admission?: No
[2019-09-29] MEDS ORDERED: MENTHOL/PHENOL 1 EACH UD MM PRN (20:22)
[2019-09-29] MEDS ORDERED: MAGNESIUM HYDROX 2400MG/30ML ORAL SUSPENSION 30 ML CUP PO PRN (20:22)
[2019-09-29] MEDS ORDERED: MAGNESIUM CITRATE 300 ML BOTTLE PO PRN (20:22)
[2019-09-29] MEDS ORDERED: MAG HYDROX/AL HYDROX/SIMETH 30 ML UNIT-DOSE CUP PO PRN (20:22)
[2019-09-29] MEDS ORDERED: ONDANSETRON *ODT* 4 MG TABLET SL PRN (20:22)
[2019-09-29] MEDS ORDERED: guaiFENesin 200 MG/10 ML 10 ML UNIT-DOSE CUPS PO PRN (20:22)
[2019-09-29] MEDS ORDERED: P-EPHED 60MG/TRIPROLIDI 2.5MG TABLET PO PRN (20:22)
[2019-09-29] MEDS ORDERED: MELATONIN 5 MG TABLETS PO PRN (20:22)
[2019-09-29] MEDS ORDERED: NICOTINE POLACRILEX 2 MG GUM BUC PRN (20:22)
[2019-09-29] MEDS: diazePAM 5 MG TABLET PO SCH (21:14)
[2019-09-29] MEDS: THIAMINE HCL 100 MG TABLET (FP) PO SCH (21:14)
[2019-09-30] MEDS: diazePAM 5 MG TABLET PO PRN ×2 (00:45→17:34)
[2019-09-30] MEDS: diazePAM 5 MG TABLET PO SCH ×3 (05:51→21:33)
[2019-09-30] MEDS ORDERED: METHADONE HCL 10 MG TABLET PO ONE (08:32)
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
[2019-09-30] MEDS ORDERED: METHADONE 80 MG, METHADONE 30 MG PO ONE (09:35)
[2019-09-30 09:46] LABS: HEMATOCRIT 46.6 % (32.4-45.2); HEMOGLOBIN 15.5 GM/dL (10.7-15.3); MCH 30.4 pg (25.7-33.7); MCHC 33.3 g/dl (32.0-36.0); MEAN CELL VOLUME 91.2 fl (80-96); MEAN PLT VOLUME 9.9 fl (7.5-11.1); PLATELET COUNT 94 K/MM3 (134-434); RBC 5.11 M/mm3 (3.60-5.2); RDW 15.1 % (11.6-15.6)
[2019-09-30] MEDS ORDERED: CITALOPRAM HYDROBROMIDE 10 MG TABLET (FP) PO SCH (10:00)
[2019-09-30] MEDS: PRENATAL VITAMINS W/ FOLIC ACID TABLET (FP) PO SCH (10:05)
[2019-09-30] MEDS: NICOTINE 21 MG/24 HOURS TOPICAL PATCH TD SCH (10:06)
[2019-09-30] MEDS ORDERED: METHADONE HCL 10 MG TABLET ONE (10:07)
[2019-09-30] MEDS ORDERED: METHADONE HCL 40 MG DISPERSABLE TABLET ONE (10:08)
--- NOTE | 2019-09-30 10:14 | PN ---
S CIWA - CIWA Score Nausea/Vomitin-No Nausea/No Vomiting Muscle Tremors: 3 Anxiety: 2 Agitation: 3 Paroxysmal Sweats: 3 Orientation: 0-Oriented Tacttile Disturbances: 0-None Auditory Disturbances: 0-None Visual Disturbances: 0-None Headache: 0-None Present CIWA-Ar Total Score: 11 S Progress Note (SOAP) Subjective: sweats shakes interrupted sleep body aches Objective: 09/30/19 10:13 Vital Signs Temperature 98.2 F 09/30/19 09:21 Pulse Rate 68 09/30/19 09:21 Respiratory Rate 18 09/30/19 09:21 Blood Pressure 152/74 09/30/19 09:21 O2 Sat by Pulse Oximetry (%) Laboratory Tests 09/29/19 09/30/19 20:19 08:30 WBC 6.0 RBC 5.11 Hgb 15.5 H Hct 46.6 H MCV 91.2 MCH 30.4 MCHC 33.3 RDW 15.1 Plt Count 94 L MPV 9.9 POC Urine HCG, Qual Negative rest of labs pending aaox3 ambulating no acute distress Assessment: 09/30/19 10:13 withdrawals Plan: continue detox increase fluids pending labs
[2019-09-30 10:39] LABS: ALBUMIN 3.8 g/dl (3.4-5.0); BILIRUBIN,TOTAL 0.8 mg/dL (0.2-1); BLOOD UREA NITROGEN 11.3 mg/dL (7-18); CALCIUM 9.2 mg/dL (8.5-10.1); CREATININE 0.9 mg/dL (0.55-1.3); POTASSIUM 4.4 mmol/L (3.5-5.1)
[2019-09-30] MEDS: CITALOPRAM HYDROBROMIDE 10 MG TABLET (FP) PO SCH (11:29)
--- NOTE | 2019-09-30 11:34 | EKG ---
Test Reason : Blood Pressure : / mmHG Vent. Rate : 068 BPM Atrial Rate : 068 BPM P-R Int : 132 ms QRS Dur : 092 ms QT Int : 422 ms P-R-T Axes : 045 010 039 degrees QTc Int : 448 ms NORMAL SINUS RHYTHM NORMAL ECG WHEN COMPARED WITH ECG OF 23-JUL-2018 13:17, NO SIGNIFICANT CHANGE WAS FOUND Confirmed by LUPILLO COBOS MD ([id number]) on 09/30/2019 11:34:33 AM Referred By: JOCELIN Confirmed By:LUPILLO COBOS MD
[2019-09-30] MEDS: busPIRone HCL 10 MG TABLET (FP) PO SCH ×2 (13:03→21:32)
[2019-09-30] MEDS ORDERED: busPIRone HCL 10 MG TABLET (FP) PO SCH (14:00)
[2019-09-30 14:20] LABS: RPR REACTIVE 1:8 (NONREACTIVE)
[2019-09-30 14:21] LABS: TREPONEMA ANTIBODY PREVIOUSLY REACTIVE (NONREACTIVE)
--- NOTE | 2019-09-30 14:34 | PN ---
[facility] Progress Note Note: RN advised administrative underwriter that she received a call from the lab, pt has a RPR titer of 1 :8 confirmatory previously reactive. administrative underwriter approached pt with news and pt was not surprised. pt was diagnosed with syphilis at age 14, she received treatment and was always being sent to dept of health to check her titers. She was told by her PCP she will has titers from 1: 4 or 1:8 from time to time but if her titers increase she will need to be medicated again. Pt states she has not had any sexual encounters with anyone in years therefore she is not concerned nor worried about the results. pt was encouraged to continue getting her titers checked as she has been doing. pt in agreement.
[2019-09-30] MEDS: hydrOXYzine PAMOATE 25 MG CAPSULE (FP) PO PRN (15:55)
[2019-09-30] MEDS: MIRTAZAPINE 15 MG TABLET (FP) PO SCH (21:33)
[2019-09-30] MEDS: THIAMINE HCL 100 MG TABLET (FP) PO SCH (21:34)
[2019-10-01] MEDS ORDERED: METHADONE HCL 10 MG TABLET ONE (05:34)
[2019-10-01] MEDS ORDERED: METHADONE HCL 40 MG DISPERSABLE TABLET ONE (05:35)
[2019-10-01] MEDS ORDERED: METHADONE HCL 40 MG DISPERSABLE TABLET PO SCH (06:00)
[2019-10-01] MEDS ORDERED: METHADONE 80 MG, METHADONE 30 MG PO SCH (06:00)
[2019-10-01] MEDS: busPIRone HCL 10 MG TABLET (FP) PO SCH ×3 (06:08→21:58)
[2019-10-01] MEDS: diazePAM 5 MG TABLET PO SCH ×2 (06:09→18:12)
[2019-10-01] MEDS ORDERED: METHADONE HCL 10 MG TABLET (FOR DETOX USE ONLY) PO ONE (08:45)
[2019-10-01] MEDS ORDERED: METHADONE HCL 10 MG TABLET PO ONE (08:46)
--- NOTE | 2019-10-01 08:53 | PN ---
[facility] Progress Note Note: pt states she needs to get to her apartment to let her roommate in. pt was made aware of her need for detox and risk of relapse, seizures, DT, OD and or loss. Pt was encouraged to see her counselor at her [facility] and get reinstated. Pt in agreement.
[2019-10-01] MEDS ORDERED: METHADONE 80 MG, METHADONE 30 MG PO ONE (09:05)
[2019-10-01] MEDS: CITALOPRAM HYDROBROMIDE 10 MG TABLET (FP) PO SCH (10:03)
[2019-10-01] MEDS: PRENATAL VITAMINS W/ FOLIC ACID TABLET (FP) PO SCH (10:04)
[2019-10-01] MEDS: diazePAM 5 MG TABLET PO PRN ×3 (10:04→21:58)
[2019-10-01] MEDS: NICOTINE 21 MG/24 HOURS TOPICAL PATCH TD SCH (10:04)
[2019-10-01] MEDS: METHADONE 80 MG, METHADONE 30 MG PO SCH (10:04)
--- NOTE | 2019-10-01 10:58 | PN ---
[facility] CIWA - CIWA Score Nausea/Vomitin-No Nausea/No Vomiting Muscle Tremors: 3 Anxiety: 2 Agitation: 2 Paroxysmal Sweats: 3 Orientation: 0-Oriented Tacttile Disturbances: 0-None Auditory Disturbances: 0-None Visual Disturbances: 0-None Headache: 0-None Present CIWA-Ar Total Score: 10 S Progress Note (SOAP) Subjective: sweats anxiety body aches restless Objective: 10/01/19 10:58 Vital Signs Temperature 98.1 F 10/01/19 09:25 Pulse Rate 66 10/01/19 09:25 Respiratory Rate 18 10/01/19 09:25 Blood Pressure 119/75 10/01/19 09:25 O2 Sat by Pulse Oximetry (%) Laboratory Tests 09/29/19 09/30/19 09/30/19 20:19 08:30 08:30 WBC 6.0 RBC 5.11 Hgb 15.5 H Hct 46.6 H MCV 91.2 MCH 30.4 MCHC 33.3 RDW 15.1 Plt Count 94 L MPV 9.9 Sodium 137 Potassium 4.4 Chloride 102 Carbon Dioxide 29 Anion Gap 6 L BUN 11.3 Creatinine 0.9 Est GFR (CKD-EPI)AfAm 84.01 Est GFR (CKD-EPI)NonAf 72.49 Random Glucose 171 H Calcium 9.2 Total Bilirubin 0.8 AST 20 ALT 26 Alkaline Phosphatase 71 Total Protein 8.0 Albumin 3.8 POC Urine HCG, Qual Negative RPR Titer T.pallidum Ab (MHA) 09/30/19 08:30 WBC RBC Hgb Hct MCV MCH MCHC RDW Plt Count MPV Sodium Potassium Chloride Carbon Dioxide Anion Gap BUN Creatinine Est GFR (CKD-EPI)AfAm Est GFR (CKD-EPI)NonAf Random Glucose Calcium Total Bilirubin AST ALT Alkaline Phosphatase Total Protein Albumin POC Urine HCG, Qual RPR Titer Reactive 1:8 H T.pallidum Ab (MHA) Previously reactive aaox3 ambulating no acute distress Assessment: 10/01/19 10:58 withdrawals Plan: continue detox increase fluids
[2019-10-01] MEDS: METHOCARBAMOL 500 MG TABLET PO PRN (17:42)
[2019-10-01] MEDS: MIRTAZAPINE 15 MG TABLET (FP) PO SCH (21:58)
[2019-10-01] MEDS: THIAMINE HCL 100 MG TABLET (FP) PO SCH (21:58)
[2019-10-02] MEDS: hydrOXYzine PAMOATE 25 MG CAPSULE (FP) PO PRN (04:09)
[2019-10-02] MEDS: busPIRone HCL 10 MG TABLET (FP) PO SCH ×3 (05:24→22:35)
[2019-10-02] MEDS ORDERED: diazePAM 5 MG TABLET PO ONE (06:00)
[2019-10-02] MEDS ORDERED: METHADONE HCL 40 MG DISPERSABLE TABLET ONE (09:14)
[2019-10-02] MEDS ORDERED: METHADONE HCL 10 MG TABLET ONE (09:14)
[2019-10-02] MEDS: METHADONE 80 MG, METHADONE 30 MG PO SCH (09:26)
[2019-10-02] MEDS: CITALOPRAM HYDROBROMIDE 10 MG TABLET (FP) PO SCH (09:26)
[2019-10-02] MEDS: diazePAM 5 MG TABLET PO PRN ×2 (10:24→17:29)
[2019-10-02] MEDS: NICOTINE 21 MG/24 HOURS TOPICAL PATCH TD SCH (10:24)
[2019-10-02] MEDS: PRENATAL VITAMINS W/ FOLIC ACID TABLET (FP) PO SCH (10:24)
--- NOTE | 2019-10-02 13:42 | PN ---
[facility] CIWA - CIWA Score Nausea/Vomitin-Mild Nausea/No Vomiting Muscle Tremors: 1-None Visible, but [place] Anxiety: 4-Mod. Anxious/Guarded Agitation: 1-Slight > Activity Paroxysmal Sweats: 2 Orientation: 0-Oriented Tacttile Disturbances: 1-Very Mild Itch/Numbness Auditory Disturbances: 0-None Visual Disturbances: 0-None Headache: 0-None Present CIWA-Ar Total Score: 10 S Progress Note (SOAP) Subjective: c/o of feeling anxious, craving to "use", diarrhea and body aches Objective: 10/02/19 13:41 Vital Signs Temperature 97.7 F 10/02/19 10:16 Pulse Rate 66 10/02/19 10:16 Respiratory Rate 10/02/19 10:16 Blood Pressure 125/85 10/02/19 10:16 O2 Sat by Pulse Oximetry (%) Laboratory Last Values WBC 6.0 K/mm3 (4.0-10.0) 09/30/19 08:30 RBC 5.11 M/mm3 (3.60-5.2) 09/30/19 08:30 Hgb 15.5 GM/dL (10.7-15.3) H 09/30/19 08:30 Hct 46.6 % (32.4-45.2) H 09/30/19 08:30 MCV 91.2 fl (80-96) 09/30/19 08:30 MCH 30.4 pg (25.7-33.7) 09/30/19 08:30 MCHC 33.3 g/dl (32.0-36.0) 09/30/19 08:30 RDW 15.1 % (11.6-15.6) 09/30/19 08:30 Plt Count 94 K/MM3 (134-434) L 09/30/19 08:30 MPV 9.9 fl (7.5-11.1) 09/30/19 08:30 Sodium 137 mmol/L (136-145) 09/30/19 08:30 Potassium 4.4 mmol/L (3.5-5.1) 09/30/19 08:30 Chloride 102 mmol/L (98-107) 09/30/19 08:30 Carbon Dioxide 29 mmol/L (21-32) 09/30/19 08:30 Anion Gap 6 MMOL/L (8-16) L 09/30/19 08:30 BUN 11.3 mg/dL (7-18) 09/30/19 08:30 Creatinine 0.9 mg/dL (0.55-1.3) 09/30/19 08:30 Est GFR (CKD-EPI)AfAm 84.01 09/30/19 08:30 Est GFR (CKD-EPI)NonAf 72.49 09/30/19 08:30 Random Glucose 171 mg/dL (74-106) H 09/30/19 08:30 Calcium 9.2 mg/dL (8.5-10.1) 09/30/19 08:30 Total Bilirubin 0.8 mg/dL (0.2-1) 09/30/19 08:30 AST 20 U/L (15-37) 09/30/19 08:30 ALT 26 U/L (13-61) 09/30/19 08:30 Alkaline Phosphatase 71 U/L (45-117) 09/30/19 08:30 Total Protein 8.0 g/dl (6.4-8.2) 09/30/19 08:30 Albumin 3.8 g/dl (3.4-5.0) 09/30/19 08:30 POC Urine HCG, Qual Negative 09/29/19 20:19 RPR Titer Reactive 1:8 (NONREACTIVE) H 09/30/19 08:30 T.pallidum Ab (MHA) Previously reactive (NONREACTIVE) 09/30/19 08:30 Assessment: 10/02/19 13:41 Patient Aox3 no acute distress, anxious Full ROM no gait disturbance no abdominal tenderness no edema or erythema withdrawal sx Plan: increase fluids continue to monitor d/c in AM
[2019-10-02] MEDS: THIAMINE HCL 100 MG TABLET (FP) PO SCH (22:32)
[2019-10-02] MEDS: MIRTAZAPINE 15 MG TABLET (FP) PO SCH (22:32)
[2019-10-02] MEDS: METHOCARBAMOL 500 MG TABLET PO PRN (22:36)
[2019-10-03] MEDS: METHOCARBAMOL 500 MG TABLET PO PRN (06:18)
[2019-10-03] MEDS: busPIRone HCL 10 MG TABLET (FP) PO SCH (06:18)
[2019-10-03 07:46] VITALS: BP 93/55; PULSE 56; TEMP 98.1
--- NOTE | 2019-10-03 14:31 | DS ---
[facility] Detox Discharge Summary Admission Date: 09/29/19 Discharge Date: 10/03/19 - History Present History: Alcohol Dependence, Opioid Dependence, Sedative Dependence Additional Comments: Pt is medically cleared and discharged today. Pt completed the detox protocol. Pt is encouraged to follow-up with an outpatient CD program and also to follow- up with her pmd. Pt verbalized understanding of the information given. Pt is alert and oriented x3 and in no acute respiratory distress. Pertinent Past History: h/o alcohol, heroin, and benzo use disorder. - Physical Exam Results Vital Signs: Vital Signs Temperature 98.1 F 10/03/19 07:41 Pulse Rate 56 L 10/03/19 07:41 Respiratory Rate 18 10/03/19 07:41 Blood Pressure 93/55 L 10/03/19 07:41 O2 Sat by Pulse Oximetry (%) Vital Signs 10/03/19 07:41 Temperature 98.1 F Pulse Rate 56 L Respiratory 18 Rate Blood Pressure 93/55 L Laboratory Last Values WBC 6.0 K/mm3 (4.0-10.0) 09/30/19 08:30 RBC 5.11 M/mm3 (3.60-5.2) 09/30/19 08:30 Hgb 15.5 GM/dL (10.7-15.3) H 09/30/19 08:30 Hct 46.6 % (32.4-45.2) H 09/30/19 08:30 MCV 91.2 fl (80-96) 09/30/19 08:30 MCH 30.4 pg (25.7-33.7) 09/30/19 08:30 MCHC 33.3 g/dl (32.0-36.0) 09/30/19 08:30 RDW 15.1 % (11.6-15.6) 09/30/19 08:30 Plt Count 94 K/MM3 (134-434) L 09/30/19 08:30 MPV 9.9 fl (7.5-11.1) 09/30/19 08:30 Sodium 137 mmol/L (136-145) 09/30/19 08:30 Potassium 4.4 mmol/L (3.5-5.1) 09/30/19 08:30 Chloride 102 mmol/L (98-107) 09/30/19 08:30 Carbon Dioxide 29 mmol/L (21-32) 09/30/19 08:30 Anion Gap 6 MMOL/L (8-16) L 09/30/19 08:30 BUN 11.3 mg/dL (7-18) 09/30/19 08:30 Creatinine 0.9 mg/dL (0.55-1.3) 09/30/19 08:30 Est GFR (CKD-EPI)AfAm 84.01 09/30/19 08:30 Est GFR (CKD-EPI)NonAf 72.49 09/30/19 08:30 Random Glucose 171 mg/dL (74-106) H 09/30/19 08:30 Calcium 9.2 mg/dL (8.5-10.1) 09/30/19 08:30 Total Bilirubin 0.8 mg/dL (0.2-1) 09/30/19 08:30 AST 20 U/L (15-37) 09/30/19 08:30 ALT 26 U/L (13-61) 09/30/19 08:30 Alkaline Phosphatase 71 U/L (45-117) 09/30/19 08:30 Total Protein 8.0 g/dl (6.4-8.2) 09/30/19 08:30 Albumin 3.8 g/dl (3.4-5.0) 09/30/19 08:30 POC Urine HCG, Qual Negative 09/29/19 20:19 RPR Titer Reactive 1:8 (NONREACTIVE) H 09/30/19 08:30 T.pallidum Ab (MHA) Previously reactive (NONREACTIVE) 09/30/19 08:30 Labs noted. Pertinent Admission Physical Exam Findings: withdrawal symptoms. - Treatment Hospital Course: Detox Protocol Followed, Detoxed Safely, Responded well, Discharged Condition Good - Medication Discharge Medications: Ambulatory Orders Cyclobenzaprine HCl [Flexeril -] 10 mg PO HS 09/29/19 Tramadol HCl 50 mg PO DAILY 09/29/19 - Diagnosis (1) Alcohol abuse Status: Acute (2) Uncomplicated sedative, hypnotic or anxiolytic withdrawal Status: Acute (3) Alcohol dependence with uncomplicated withdrawal Status: Chronic (4) Opioid dependence on agonist therapy Status: Chronic (5) History of syphilis Status: Suspected (6) Hepatitis C Status: Resolved Qualifiers: Viral hepatitis chronicity: chronic Hepatic coma status: without hepatic coma Qualified Code(s): B18.2 - Chronic viral hepatitis C (7) S/P laparoscopic cholecystectomy Status: Resolved - AMA Did Patient Leave Against Medical Advice: No
== END 2019-10-03 08:57 | disposition home or self-care (01) | DRG 897 ==
LOC: YASAS 18:35 → Y6N 20:22
PROVIDERS: ADMIT Allergy & Immunology; ATTEND Allergy & Immunology
PROC: HZ2ZZZZ Detoxification Services for Substance Abuse Treatment (ICD-10-PCS; principal; 2019-09-29)
DX: F10.230 Alcohol dependence with withdrawal, uncomplicated (principal); F11.20 Opioid dependence, uncomplicated; F19.282 Other psychoactive substance dependence with psychoactive substance-induced sleep disorder; F13.230 Sedative, hypnotic or anxiolytic dependence with withdrawal, uncomplicated; F17.210 Nicotine dependence, cigarettes, uncomplicated; F43.10 Post-traumatic stress disorder, unspecified; F19.24 Other psychoactive substance dependence with psychoactive substance-induced mood disorder; F41.9 Anxiety disorder, unspecified; F32.9 Major depressive disorder, single episode, unspecified; B18.2 Chronic viral hepatitis C; M54.5 Low back pain; G89.29 Other chronic pain; G47.00 Insomnia, unspecified; Z87.42 Personal history of other diseases of the female genital tract; Z88.6 Allergy status to analgesic agent; Z88.8 Allergy status to other drugs, medicaments and biological substances
CPT/HCPCS: 36415; 80053; 81025; 85027; 86593; 86780; 93005; 93010

== ENCOUNTER 2021-02-08 09:09 | Inpatient (IN) | payer OTHER ==
[2021-02-08 09:57] VITALS: BMI 23.8
[2021-02-08] MEDS ORDERED: MAGNESIUM CITRATE 300 ML BOTTLE PO PRN (10:54)
[2021-02-08] MEDS ORDERED: ONDANSETRON *ODT* 4 MG TABLET SL PRN (10:54)
[2021-02-08] MEDS ORDERED: LORazepam 1 MG TABLET PO PRN (10:54)
[2021-02-08] MEDS ORDERED: MAGNESIUM HYDROX 2400MG/30ML ORAL SUSPENSION 30 ML CUP PO PRN (10:54)
[2021-02-08] MEDS ORDERED: MAG HYDROX/AL HYDROX/SIMETH 30 ML UNIT-DOSE CUP PO PRN (10:54)
[2021-02-08] MEDS ORDERED: ACETAMINOPHEN 325 MG TABLET (FP) PO PRN ×2 (10:54)
[2021-02-08] MEDS ORDERED: MENTHOL/PHENOL 1 EACH UD MM PRN (10:54)
[2021-02-08] MEDS ORDERED: BISMUTH SUBSALICYLATE 524 MG/30 ML UD PO PRN (10:54)
[2021-02-08] MEDS ORDERED: NALOXONE (NARCAN) HCL 4 MG/0.1 ML SPRAY NS PRN (10:54)
[2021-02-08] MEDS ORDERED: IBUPROFEN 400 MG TABLET (FP) PO PRN (10:54)
[2021-02-08] MEDS ORDERED: NICOTINE POLACRILEX 2 MG GUM BUC PRN (10:54)
[2021-02-08] MEDS: METHOCARBAMOL 500 MG TABLET PO PRN (12:31)
[2021-02-08] MEDS: PRENATAL VITAMINS W/ FOLIC ACID TABLET (FP) PO SCH (12:31)
[2021-02-08] MEDS: NICOTINE 14 MG/24 HOURS TOPICAL PATCH TD SCH (12:31)
[2021-02-08] MEDS ORDERED: hydrOXYzine PAMOATE 25 MG CAPSULE (FP) PO SCH (14:00)
[2021-02-08 14:42] LABS: HEMATOCRIT 44.1 % (32.4-45.2); HEMOGLOBIN 14.9 GM/dL (10.7-15.3); MCHC 33.8 g/dl (32.0-36.0); MEAN CELL VOLUME 91.6 fl (80-96); MEAN PLT VOLUME 10.5 fl (7.5-11.1); PLATELET COUNT 88 K/MM3 (134-434); RBC 4.82 M/mm3 (3.60-5.2); WHITE BLOOD COUNT 5.5 K/mm3 (4.0-10.0)
[2021-02-08 14:55] LABS: ALBUMIN 3.6 g/dl (3.4-5.0)
[2021-02-08 14:57] LABS: CREATININE 0.8 mg/dL (0.55-1.3)
[2021-02-08 14:59] LABS: BILIRUBIN,TOTAL 0.4 mg/dL (0.2-1)
[2021-02-08 15:00] LABS: TOT PROT 7.4 g/dl (6.4-8.2)
[2021-02-08] MEDS: LORazepam 2 MG TABLET PO SCH ×2 (17:52→22:28)
[2021-02-08] MEDS: THIAMINE HCL 100 MG TABLET (FP) PO SCH (22:28)
[2021-02-08] MEDS: MELATONIN 5 MG TABLETS PO SCH (22:28)
[2021-02-08] MEDS: hydrOXYzine PAMOATE 25 MG CAPSULE (FP) PO PRN (22:29)
[2021-02-09] MEDS ORDERED: METHADONE HCL 10 MG TABLET ONE ×2 (04:01→09:14)
[2021-02-09] MEDS ORDERED: METHADONE HCL 40 MG DISPERSABLE TABLET ONE ×2 (04:01→09:16)
[2021-02-09] MEDS ORDERED: METHADONE HCL 10 MG TABLET PO SCH (06:00)
[2021-02-09] MEDS ORDERED: METHADONE 120 MG, METHADONE 10 MG PO SCH (06:00)
[2021-02-09] MEDS: LORazepam 2 MG TABLET PO SCH ×4 (06:21→22:39)
[2021-02-09] MEDS: hydrOXYzine PAMOATE 25 MG CAPSULE (FP) PO PRN (06:22)
[2021-02-09] MEDS: METHOCARBAMOL 500 MG TABLET PO PRN (06:23)
[2021-02-09] MEDS: METHADONE 120 MG, METHADONE 10 MG PO SCH (10:09)
[2021-02-09] MEDS: NICOTINE 14 MG/24 HOURS TOPICAL PATCH TD SCH (10:10)
[2021-02-09] MEDS: PRENATAL VITAMINS W/ FOLIC ACID TABLET (FP) PO SCH (10:10)
[2021-02-09] MEDS ORDERED: ARIPiprazole 2 MG TABLET PO SCH (22:00)
[2021-02-09] MEDS: THIAMINE HCL 100 MG TABLET (FP) PO SCH (22:40)
[2021-02-09] MEDS: MELATONIN 5 MG TABLETS PO SCH (22:40)
[2021-02-10] MEDS: hydrOXYzine PAMOATE 25 MG CAPSULE (FP) PO PRN ×2 (05:45→17:37)
[2021-02-10] MEDS: METHOCARBAMOL 500 MG TABLET PO PRN ×2 (05:45→22:14)
[2021-02-10] MEDS: LORazepam 1 MG TABLET PO SCH ×4 (05:46→22:14)
[2021-02-10] MEDS ORDERED: METHADONE HCL 40 MG DISPERSABLE TABLET ONE (09:37)
[2021-02-10] MEDS ORDERED: METHADONE HCL 10 MG TABLET ONE (09:37)
[2021-02-10] MEDS: NICOTINE 14 MG/24 HOURS TOPICAL PATCH TD SCH (10:16)
[2021-02-10] MEDS: PRENATAL VITAMINS W/ FOLIC ACID TABLET (FP) PO SCH (10:16)
[2021-02-10] MEDS: METHADONE 120 MG, METHADONE 10 MG PO SCH (10:17)
[2021-02-10] MEDS: THIAMINE HCL 100 MG TABLET (FP) PO SCH (22:14)
[2021-02-10] MEDS: MELATONIN 5 MG TABLETS PO SCH (22:14)
[2021-02-10] MEDS: SUVOREXANT 10 MG TABLET PO PRN (22:14)
[2021-02-11] MEDS ORDERED: LORazepam 0.5 MG TABLET PO PRN
[2021-02-11] MEDS: METHOCARBAMOL 500 MG TABLET PO PRN ×2 (06:05→22:37)
[2021-02-11] MEDS: LORazepam 0.5 MG TABLET PO SCH ×4 (06:05→22:36)
[2021-02-11] MEDS: hydrOXYzine PAMOATE 25 MG CAPSULE (FP) PO PRN ×2 (06:05→18:27)
[2021-02-11 06:07] LABS: SARS-CoV-2 NAA Not Detected (Not Detected)
[2021-02-11] MEDS ORDERED: METHADONE HCL 40 MG DISPERSABLE TABLET ONE (08:58)
[2021-02-11] MEDS ORDERED: METHADONE HCL 10 MG TABLET ONE (08:58)
[2021-02-11] MEDS: METHADONE 120 MG, METHADONE 10 MG PO SCH (10:17)
[2021-02-11] MEDS: NICOTINE 14 MG/24 HOURS TOPICAL PATCH TD SCH (10:18)
[2021-02-11] MEDS: PRENATAL VITAMINS W/ FOLIC ACID TABLET (FP) PO SCH (10:18)
[2021-02-11] MEDS: THIAMINE HCL 100 MG TABLET (FP) PO SCH (22:36)
[2021-02-11] MEDS: MELATONIN 5 MG TABLETS PO SCH (22:36)
[2021-02-11] MEDS: SUVOREXANT 10 MG TABLET PO PRN (22:36)
[2021-02-12] MEDS ORDERED: LORazepam 0.5 MG TABLET PO ONE (05:00)
[2021-02-12] MEDS: hydrOXYzine PAMOATE 25 MG CAPSULE (FP) PO PRN (06:40)
[2021-02-12 06:50] VITALS: BP 99/63; PULSE 78; TEMP 97
== END 2021-02-12 08:48 | disposition home or self-care (01) | DRG 897 ==
LOC: YASAS 09:09 → Y3N 11:01
PROVIDERS: ADMIT Allergy & Immunology; ATTEND Allergy & Immunology
PROC: HZ2ZZZZ Detoxification Services for Substance Abuse Treatment (ICD-10-PCS; principal; 2021-02-08)
DX: F10.230 Alcohol dependence with withdrawal, uncomplicated (principal); F11.23 Opioid dependence with withdrawal; F13.230 Sedative, hypnotic or anxiolytic dependence with withdrawal, uncomplicated; F17.210 Nicotine dependence, cigarettes, uncomplicated; F19.24 Other psychoactive substance dependence with psychoactive substance-induced mood disorder; F43.10 Post-traumatic stress disorder, unspecified; G47.00 Insomnia, unspecified; Z86.19 Personal history of other infectious and parasitic diseases; Z90.49 Acquired absence of other specified parts of digestive tract; Z98.890 Other specified postprocedural states; Z88.5 Allergy status to narcotic agent; Z88.6 Allergy status to analgesic agent; Z88.8 Allergy status to other drugs, medicaments and biological substances; Z91.19 Patient's noncompliance with other medical treatment and regimen
CPT/HCPCS: 36415; 80053; 85027; 86593; 86780; C9803; U0003; U0005

== ENCOUNTER 2023-03-08 09:19 | Inpatient (IN) | payer OTHER ==
[2023-03-08 09:44] VITALS: BMI 37.0
[2023-03-08] MEDS ORDERED: guaiFENesin 600 MG TABLET.ER (FP) PO PRN (11:13)
[2023-03-08] MEDS ORDERED: BENZOCAINE/MENTHOL (CHLORASEPTIC ) LOZENGE MM PRN (11:13)
[2023-03-08] MEDS ORDERED: LORazepam 1 MG TABLET PO PRN (11:13)
[2023-03-08] MEDS ORDERED: NALOXONE HCL (KLOXXADO) 8 MG SPRAY NS PRN (11:13)
[2023-03-08] MEDS ORDERED: IBUPROFEN 400 MG TABLET (FP) PO PRN (11:13)
[2023-03-08] MEDS ORDERED: MAGNESIUM HYDROX 2400MG/30ML ORAL SUSPENSION 30 ML CUP PO PRN (11:13)
[2023-03-08] MEDS ORDERED: MAG HYDROX/AL HYDROX/SIMETH 30 ML UNIT-DOSE CUP PO PRN (11:13)
[2023-03-08] MEDS ORDERED: ONDANSETRON *ODT* 4 MG TABLET SL PRN (11:13)
[2023-03-08] MEDS ORDERED: NALOXONE HCL 0.4 MG/ML VIAL IM PRN (11:13)
[2023-03-08] MEDS ORDERED: ACETAMINOPHEN 325 MG TABLET (FP) PO PRN (11:13)
[2023-03-08] MEDS ORDERED: DICYCLOMINE HCL 10 MG CAPSULE PO PRN (11:13)
[2023-03-08] MEDS ORDERED: NICOTINE 10 MG CARTRIDGE (INHALER) IH PRN (11:13)
[2023-03-08] MEDS ORDERED: BENZONATATE 200 MG CAPSULE PO PRN (11:13)
[2023-03-08] MEDS ORDERED: IBUPROFEN 600 MG TABLET (FP) PO PRN (11:13)
[2023-03-08] MEDS ORDERED: POLYETHYLENE GLYCOL (HEALTHYLAX) 3350 17 GM PACKET PO PRN (11:13)
[2023-03-08] MEDS ORDERED: LOPERAMIDE HCL 2 MG CAPSULE PO PRN (11:13)
[2023-03-08] MEDS ORDERED: BISMUTH SUBSALICYLATE 524 MG/30 ML PO PRN (11:13)
[2023-03-08] MEDS ORDERED: NICOTINE 14 MG/24 HOURS TOPICAL PATCH TD ONE (12:17)
[2023-03-08] MEDS ORDERED: hydrOXYzine PAMOATE 25 MG CAPSULE (FP) PO ONE (12:17)
[2023-03-08] MEDS ORDERED: PRENATAL VITAMINS W/ FOLIC ACID TABLET (FP) PO ONE (12:18)
[2023-03-08] MEDS: NICOTINE 14 MG/24 HOURS TOPICAL PATCH TD SCH (12:22)
[2023-03-08] MEDS: PRENATAL VITAMINS W/ FOLIC ACID TABLET (FP) PO SCH (12:22)
[2023-03-08] MEDS: hydrOXYzine PAMOATE 25 MG CAPSULE (FP) PO PRN ×2 (12:23→21:16)
[2023-03-08] MEDS ORDERED: TUBERCULIN PPD 5 TU/0.1ML SYRINGE (IN PATIENT USE ONLY) ID ONE (13:39)
[2023-03-08 15:16] LABS: HEMATOCRIT 43.1 % (32.4-45.2); HEMOGLOBIN 14.8 GM/dL (10.7-15.3); MCH 29.7 pg (25.7-33.7); MCHC 34.3 g/dl (32.0-36.0); MEAN CELL VOLUME 86.7 fl (80-96); MEAN PLT VOLUME 9.5 fl (7.5-11.1); PLATELET COUNT 103 10^3/uL (134-434); RBC 4.97 M/mm3 (3.60-5.2); RDW 14.1 % (11.6-15.6); WHITE BLOOD COUNT 8.1 K/mm3 (4.0-10.0)
[2023-03-08] MEDS: LORazepam 2 MG TABLET PO SCH ×2 (17:34→22:41)
[2023-03-08 20:16] LABS: ALBUMIN 3.9 g/dl (3.4-5.0); BLOOD UREA NITROGEN 8.2 mg/dL (7-18); CALCIUM 9.2 mg/dL (8.5-10.1); CREATININE 0.8 mg/dL (0.55-1.3); TOT PROT 7.7 g/dl (6.4-8.2)
[2023-03-08] MEDS: THIAMINE HCL 100 MG TABLET (FP) PO SCH (22:40)
[2023-03-08] MEDS: MELATONIN 5 MG TABLETS PO SCH (22:41)
[2023-03-08] MEDS: METHOCARBAMOL 500 MG TABLET PO PRN (22:41)
[2023-03-09] MEDS: LORazepam 2 MG TABLET PO SCH ×4 (05:37→22:21)
[2023-03-09] MEDS: METHOCARBAMOL 500 MG TABLET PO PRN ×3 (05:38→18:17)
[2023-03-09] MEDS ORDERED: methaDONE HCL 10 MG TABLET PO SCH (06:00)
[2023-03-09] MEDS ORDERED: NAPROXEN 375 MG TABLET PO PRN (09:43)
[2023-03-09] MEDS: PRENATAL VITAMINS W/ FOLIC ACID TABLET (FP) PO SCH (10:00)
[2023-03-09] MEDS ORDERED: NICOTINE 21 MG/24 HOURS TOPICAL PATCH TD PRN (10:00)
[2023-03-09] MEDS: NICOTINE 14 MG/24 HOURS TOPICAL PATCH TD SCH (10:01)
[2023-03-09] MEDS: NAPROXEN 375 MG TABLET PO PRN (11:23)
[2023-03-09] MEDS: hydrOXYzine PAMOATE 25 MG CAPSULE (FP) PO PRN (15:48)
[2023-03-09] MEDS: MELATONIN 5 MG TABLETS PO SCH (22:21)
[2023-03-09] MEDS: THIAMINE HCL 100 MG TABLET (FP) PO SCH (22:21)
[2023-03-10] MEDS: LORazepam 1 MG TABLET PO SCH ×3 (05:36→17:57)
[2023-03-10] MEDS: hydrOXYzine PAMOATE 25 MG CAPSULE (FP) PO PRN (05:37)
[2023-03-10 09:40] VITALS: RESP 17
[2023-03-10] MEDS ORDERED: LORATADINE 10 MG TABLET PO SCH (10:00)
[2023-03-10] MEDS: PRENATAL VITAMINS W/ FOLIC ACID TABLET (FP) PO SCH (10:06)
[2023-03-10] MEDS: NAPROXEN 375 MG TABLET PO PRN (10:06)
[2023-03-10 13:07] VITALS: BP 149/98; PULSE 63; TEMP 98.1
[2023-03-10] MEDS ORDERED: SUVOREXANT 10 MG TABLET PO PRN (22:00)
[2023-03-11] MEDS ORDERED: LORazepam 0.5 MG TABLET PO PRN
[2023-03-11] MEDS ORDERED: LORazepam 0.5 MG TABLET PO SCH (05:00)
[2023-03-12] MEDS ORDERED: LORazepam 0.5 MG TABLET PO ONE (05:00)
== END 2023-03-10 16:30 | disposition left against medical advice (07) | DRG 894 ==
LOC: YASAS 09:19 → Y6N 11:31
PROVIDERS: ADMIT Allergy & Immunology; ATTEND Surgery
PROC: HZ2ZZZZ Detoxification Services for Substance Abuse Treatment (ICD-10-PCS; principal; 2023-03-08)
DX: F13.230 Sedative, hypnotic or anxiolytic dependence with withdrawal, uncomplicated (principal); F11.20 Opioid dependence, uncomplicated; F14.20 Cocaine dependence, uncomplicated; F19.282 Other psychoactive substance dependence with psychoactive substance-induced sleep disorder; F17.210 Nicotine dependence, cigarettes, uncomplicated; F19.24 Other psychoactive substance dependence with psychoactive substance-induced mood disorder; F43.10 Post-traumatic stress disorder, unspecified; M54.50 Low back pain, unspecified; G89.29 Other chronic pain; E66.9 Obesity, unspecified; Z68.37 Body mass index [BMI] 37.0-37.9, adult; Z86.19 Personal history of other infectious and parasitic diseases; Z88.6 Allergy status to analgesic agent
CPT/HCPCS: 36415; 80053; 85027; 86593; 86780; 87635; 87811

== ENCOUNTER 2023-03-18 04:03 | Inpatient (IN) | payer OTHER ==
[2023-03-18 05:25] VITALS: BMI 38.8
[2023-03-18] MEDS ORDERED: NALOXONE HCL 0.4 MG/ML VIAL IM PRN (10:23)
[2023-03-18] MEDS ORDERED: LOPERAMIDE HCL 2 MG CAPSULE PO PRN (10:23)
[2023-03-18] MEDS ORDERED: NALOXONE HCL (KLOXXADO) 8 MG SPRAY NS PRN (10:23)
[2023-03-18] MEDS ORDERED: guaiFENesin 600 MG TABLET.ER (FP) PO PRN (10:23)
[2023-03-18] MEDS ORDERED: BENZOCAINE/MENTHOL (CHLORASEPTIC ) LOZENGE MM PRN (10:23)
[2023-03-18] MEDS ORDERED: DICYCLOMINE HCL 10 MG CAPSULE PO PRN (10:23)
[2023-03-18] MEDS ORDERED: NICOTINE POLACRILEX 2 MG GUM BUC PRN (10:23)
[2023-03-18] MEDS ORDERED: BENZONATATE 200 MG CAPSULE PO PRN (10:23)
[2023-03-18] MEDS ORDERED: MAG HYDROX/AL HYDROX/SIMETH 30 ML UNIT-DOSE CUP PO PRN (10:23)
[2023-03-18] MEDS ORDERED: POLYETHYLENE GLYCOL (HEALTHYLAX) 3350 17 GM PACKET PO PRN (10:23)
[2023-03-18] MEDS ORDERED: BISMUTH SUBSALICYLATE 524 MG/30 ML PO PRN (10:23)
[2023-03-18] MEDS ORDERED: ONDANSETRON *ODT* 4 MG TABLET SL PRN (10:23)
[2023-03-18] MEDS ORDERED: MAGNESIUM HYDROX 2400MG/30ML ORAL SUSPENSION 30 ML CUP PO PRN (10:23)
[2023-03-18] MEDS ORDERED: NICOTINE 10 MG CARTRIDGE (INHALER) IH PRN (10:23)
[2023-03-18] MEDS ORDERED: hydrOXYzine PAMOATE 25 MG CAPSULE (FP) PO PRN (10:23)
[2023-03-18] MEDS ORDERED: methaDONE HCL 10 MG TABLET PO SCH (10:45)
[2023-03-18] MEDS ORDERED: NICOTINE 21 MG/24 HOURS TOPICAL PATCH ONE (10:50)
[2023-03-18] MEDS: NICOTINE 21 MG/24 HOURS TOPICAL PATCH TD SCH (10:51)
[2023-03-18] MEDS: diazePAM 5 MG TABLET PO SCH ×2 (17:11→22:16)
[2023-03-18] MEDS: METHOCARBAMOL 500 MG TABLET PO PRN (18:05)
[2023-03-18] MEDS ORDERED: MELATONIN 5 MG TABLETS PO SCH (22:00)
[2023-03-18] MEDS: THIAMINE HCL 100 MG TABLET (FP) PO SCH (22:16)
[2023-03-19] MEDS: diazePAM 5 MG TABLET PO PRN (02:41)
[2023-03-19] MEDS: diazePAM 5 MG TABLET PO SCH ×4 (05:33→22:28)
[2023-03-19] MEDS: METHOCARBAMOL 500 MG TABLET PO PRN ×2 (05:37→16:39)
[2023-03-19 10:14] LABS: POTASSIUM 4.2 mmol/L (3.5-5.1)
[2023-03-19 10:17] LABS: CALCIUM 8.9 mg/dL (8.5-10.1)
[2023-03-19 10:18] LABS: BLOOD UREA NITROGEN 12.9 mg/dL (7-18)
[2023-03-19 10:19] LABS: HEMATOCRIT 40.9 % (32.4-45.2); HEMOGLOBIN 13.3 GM/dL (10.7-15.3); MCH 29.2 pg (25.7-33.7); MCHC 32.5 g/dl (32.0-36.0); MEAN CELL VOLUME 89.9 fl (80-96); MEAN PLT VOLUME 10.9 fl (7.5-11.1); PLATELET COUNT 73 10^3/uL (134-434); RBC 4.56 M/mm3 (3.60-5.2); RDW 14.3 % (11.6-15.6); WHITE BLOOD COUNT 2.8 K/mm3 (4.0-10.0)
[2023-03-19 10:21] LABS: CREATININE 0.7 mg/dL (0.55-1.3)
[2023-03-19 10:22] LABS: TOT PROT 6.2 g/dl (6.4-8.2)
[2023-03-19 10:23] LABS: BILIRUBIN,TOTAL 0.4 mg/dL (0.2-1)
[2023-03-19 10:29] LABS: EPI CELLS >36 /uL (0-25.1); HYALINE CASTS 2 /uL (0-3.1); PH,URINE 5.5 (5.0-8.0); URINE APPEARANCE CLOUDY; URINE BACTERIA 2797 /uL (0-1359); URINE BILIRUBIN NEGATIVE (NEGATIVE); URINE COLOR YELLOW; URINE GLUCOSE (UA) NEGATIVE (NEGATIVE); URINE KETONE NEGATIVE (NEGATIVE); URINE LEUK ESTERASE 3+ (NEGATIVE); URINE NITRITE NEGATIVE (NEGATIVE); URINE PROTEIN NEGATIVE (NEGATIVE); URINE RBC 40 /uL (0-23.9); URINE WBC 545 /uL (0-25.8)
[2023-03-19] MEDS: PRENATAL VITAMINS W/ FOLIC ACID TABLET (FP) PO SCH (10:41)
[2023-03-19] MEDS: NICOTINE 21 MG/24 HOURS TOPICAL PATCH TD SCH (10:41)
[2023-03-19] MEDS ORDERED: PNEUMOC 20-VAL CONJ-DIP CRM/PF 0.5 ML SYRINGE IM ONE (12:00)
[2023-03-19] MEDS: THIAMINE HCL 100 MG TABLET (FP) PO SCH (22:29)
[2023-03-19] MEDS: SUVOREXANT 10 MG TABLET PO PRN (22:29)
[2023-03-20] MEDS: METHOCARBAMOL 500 MG TABLET PO PRN ×2 (04:12→10:21)
[2023-03-20] MEDS: diazePAM 5 MG TABLET PO PRN ×3 (04:13→17:45)
[2023-03-20] MEDS: diazePAM 5 MG TABLET PO SCH ×3 (06:18→22:13)
[2023-03-20] MEDS: PRENATAL VITAMINS W/ FOLIC ACID TABLET (FP) PO SCH (10:21)
[2023-03-20] MEDS: NICOTINE 21 MG/24 HOURS TOPICAL PATCH TD SCH (10:25)
[2023-03-20] MEDS: SUVOREXANT 10 MG TABLET PO PRN (22:12)
[2023-03-20] MEDS: THIAMINE HCL 100 MG TABLET (FP) PO SCH (22:13)
[2023-03-20] MEDS: SULFAMETHOXAZOLE/TRIMETHOPRIM 800MG/160MG D.S. TABLET PO SCH (22:13)
[2023-03-21] MEDS: diazePAM 5 MG TABLET PO SCH ×2 (05:41→17:17)
[2023-03-21] MEDS: METHOCARBAMOL 500 MG TABLET PO PRN ×2 (05:43→22:05)
[2023-03-21] MEDS ORDERED: methaDONE HCL 10 MG TABLET PO ONE (10:00)
[2023-03-21] MEDS: PRENATAL VITAMINS W/ FOLIC ACID TABLET (FP) PO SCH (10:13)
[2023-03-21] MEDS: SULFAMETHOXAZOLE/TRIMETHOPRIM 800MG/160MG D.S. TABLET PO SCH ×2 (10:17→22:02)
[2023-03-21] MEDS: NICOTINE 21 MG/24 HOURS TOPICAL PATCH TD SCH (10:17)
[2023-03-21] MEDS: diazePAM 5 MG TABLET PO PRN (10:17)
[2023-03-21] MEDS: THIAMINE HCL 100 MG TABLET (FP) PO SCH (22:02)
[2023-03-21] MEDS: SUVOREXANT 10 MG TABLET PO PRN (22:03)
[2023-03-22] MEDS ORDERED: diazePAM 5 MG TABLET PO ONE (06:00)
[2023-03-22 06:46] VITALS: BP 111/70; PULSE 75; RESP 18; TEMP 96.9
[2023-03-22] MEDS ORDERED: methaDONE HCL 10 MG TABLET PO ONE (08:00)
== END 2023-03-22 08:54 | disposition home or self-care (01) | DRG 897 ==
LOC: YASAS 04:03 → Y6N 08:51
PROVIDERS: ADMIT Allergy & Immunology; ATTEND Surgery
PROC: HZ2ZZZZ Detoxification Services for Substance Abuse Treatment (ICD-10-PCS; principal; 2023-03-18)
DX: F13.230 Sedative, hypnotic or anxiolytic dependence with withdrawal, uncomplicated (principal); F11.20 Opioid dependence, uncomplicated; F19.282 Other psychoactive substance dependence with psychoactive substance-induced sleep disorder; N39.0 Urinary tract infection, site not specified; F17.213 Nicotine dependence, cigarettes, with withdrawal; F43.10 Post-traumatic stress disorder, unspecified; F41.8 Other specified anxiety disorders; B18.2 Chronic viral hepatitis C; R31.9 Hematuria, unspecified; E66.9 Obesity, unspecified; Z68.38 Body mass index [BMI] 38.0-38.9, adult; Z86.79 Personal history of other diseases of the circulatory system; Z86.19 Personal history of other infectious and parasitic diseases; Z99.89 Dependence on other enabling machines and devices; Z88.6 Allergy status to analgesic agent; Z56.0 Unemployment, unspecified; Z59.00 Homelessness unspecified
CPT/HCPCS: 36415; 80053; 81003; 83036; 85027; 86593; 86780; 87635; 87811; 90677

== ENCOUNTER 2023-12-22 09:20 | Inpatient (IN) | payer OTHER ==
[2023-12-22] MEDS ORDERED: ONDANSETRON 4 MG/2 ML VIAL ONE (10:22)
[2023-12-22] MEDS ORDERED: MAG HYDROX/AL HYDROX/SIMETH 30 ML UNIT-DOSE CUP ONE (10:22)
[2023-12-22] MEDS ORDERED: FAMOTIDINE 20 MG/50 ML IVPB 20 MG/50 ML MG IVPB ONE (10:22)
[2023-12-22] MEDS: SODIUM CHLORIDE 0.9% 500 ML INFUS.BAG IV ONE (10:51)
[2023-12-22] MEDS: MAG HYDROX/AL HYDROX/SIMETH 30 ML UNIT-DOSE CUP PO ONE (10:51)
[2023-12-22] MEDS: FAMOTIDINE 20 MG/50 ML IVPB 20 MG/50 ML MG IVPB ONE (10:51)
[2023-12-22] MEDS: ONDANSETRON 4 MG/2 ML VIAL IVPUSH ONE (10:52)
[2023-12-22 10:56] LABS: BASO % 0.3 % (0-2.0); EOS % 0.5 % (0-4.5); HEMATOCRIT 43.5 % (32.4-45.2); HEMOGLOBIN 14.5 GM/dL (10.7-15.3); LYMPH % 13.5 % (8-40); MCHC 33.3 g/dl (32.0-36.0); MEAN CELL VOLUME 90.2 fl (80-96); MONO % 6.3 % (3.8-10.2); NEUT % 79.4 % (42.8-82.8); PLATELET COUNT 76 10^3/uL (134-434); RBC 4.82 M/mm3 (3.60-5.2); RDW 14.3 % (11.6-15.6); WHITE BLOOD COUNT 6.6 K/mm3 (4.0-10.0)
[2023-12-22 11:11] LABS: POTASSIUM 3.9 mmol/L (3.5-5.1)
[2023-12-22 11:13] LABS: BLOOD UREA NITROGEN 17.8 mg/dL (7-18); CALCIUM 8.7 mg/dL (8.5-10.1)
[2023-12-22 11:14] LABS: ALBUMIN 3.4 g/dl (3.4-5.0); MAGNESIUM 1.9 mg/dL (1.8-2.4)
[2023-12-22 11:17] LABS: CREATININE 0.8 mg/dL (0.55-1.3)
[2023-12-22 11:18] LABS: BILIRUBIN,TOTAL 0.6 mg/dL (0.2-1); TOT PROT 7.3 g/dl (6.4-8.2)
[2023-12-22] MEDS ORDERED: PIPERACILLIN/TAZOB 4.5 GM 4.5 GM/100 ML BAG IVPB ONE (16:58)
[2023-12-22] MEDS: PIPERACILLIN/TAZOB 4.5 GM 4.5 GM in DEXTROSE 5%-WATER 100 ML IVPB ONE (17:03)
[2023-12-22] MEDS: DEXTROSE 5%-0.45% SALINE 1,000 ML IV SCH (20:15)
[2023-12-22 23:05] LABS: COCAINE, UR NEGATIVE (NEGATIVE); URINE BARBITURATES NEGATIVE (NEGATIVE)
[2023-12-22 23:06] LABS: PHENCYCLIDINE,URINE NEGATIVE (NEGATIVE)
[2023-12-22 23:08] LABS: METHADONE, UR POSITIVE (NEGATIVE); OPIATES, URI POSITIVE (NEGATIVE); URINE AMPHETAMINES NEGATIVE (NEGATIVE); URINE BENZODIAZEPINES POSITIVE (NEGATIVE)
[2023-12-23] MEDS: PIPERACILLIN/TAZOB 4.5 GM 4.5 GM in DEXTROSE 5%-WATER 100 ML IVPB SCH ×2 (00:09→09:38)
[2023-12-23] MEDS: SODIUM CHLORIDE 1,000 ML IV SCH (00:11)
[2023-12-23] MEDS ORDERED: NALOXONE (NYS OPIOID OVERDOSE PROGRAM) 4 MG/0.1 ML SPRAY NS PRN (08:59)
[2023-12-23] MEDS ORDERED: PIPERACILLIN/TAZOB 4.5 GM 4.5 GM in DEXTROSE 5%-WATER 100 ML IVPB SCH (09:30)
[2023-12-23] MEDS: ENOXAPARIN NA (PORCINE) 40 MG/0.4 ML DISP.SYRIN SQ SCH (09:37)
[2023-12-23 09:55] LABS: BASO % 0.2 % (0-2.0); LYMPH % 10.4 % (8-40); MCH 29.8 pg (25.7-33.7); MCHC 33.4 g/dl (32.0-36.0); MEAN CELL VOLUME 89.1 fl (80-96); MEAN PLT VOLUME 9.2 fl (7.5-11.1); MONO % 6.9 % (3.8-10.2); NEUT % 82.5 % (42.8-82.8); PLATELET COUNT 103 10^3/uL (134-434); RBC 5.05 M/mm3 (3.60-5.2); RDW 14.7 % (11.6-15.6)
[2023-12-23] MEDS ORDERED: methaDONE HCL 40 MG DISPERSABLE TABLET PO SCH (10:00)
[2023-12-23 10:10] LABS: BLOOD UREA NITROGEN 15.2 mg/dL (7-18); MAGNESIUM 2.1 mg/dL (1.8-2.4)
[2023-12-23] MEDS: KETAMINE HCL 200 MG/20 ML VIAL IVPB ONE (10:11)
[2023-12-23] MEDS: D5-1/2NS+40 MEQ KCL - 40 MEQ/1,000 ML INFUS.BAG IV SCH (10:11)
[2023-12-23 10:14] LABS: CREATININE 0.6 mg/dL (0.55-1.3)
[2023-12-23 10:25] LABS: CALCIUM 8.2 mg/dL (8.5-10.1)
[2023-12-23 13:25] VITALS: BMI 36.9
[2023-12-23] MEDS: ONDANSETRON 4 MG/2 ML VIAL IVPUSH PRN (20:27)
[2023-12-23] MEDS: MELATONIN 5 MG TABLETS PO ONE (23:04)
[2023-12-24 01:29] VITALS: RESP 18
[2023-12-24] MEDS: PIPERACILLIN/TAZOB 4.5 GM 4.5 GM in DEXTROSE 5%-WATER 100 ML IVPB SCH ×2 (02:54→17:29)
[2023-12-24 09:06] LABS: BASO % 0.2 % (0-2.0); HEMATOCRIT 40.5 % (32.4-45.2); HEMOGLOBIN 13.9 GM/dL (10.7-15.3); LYMPH % 11.1 % (8-40); MCH 30.4 pg (25.7-33.7); MCHC 34.3 g/dl (32.0-36.0); MEAN CELL VOLUME 88.6 fl (80-96); MEAN PLT VOLUME 9.4 fl (7.5-11.1); MONO % 8.1 % (3.8-10.2); NEUT % 80.6 % (42.8-82.8); PLATELET COUNT 78 10^3/uL (134-434); RBC 4.57 M/mm3 (3.60-5.2); RDW 14.5 % (11.6-15.6); WHITE BLOOD COUNT 7.5 K/mm3 (4.0-10.0)
[2023-12-24 09:21] LABS: CALCIUM 8.1 mg/dL (8.5-10.1)
[2023-12-24 09:22] LABS: BLOOD UREA NITROGEN 13.1 mg/dL (7-18)
[2023-12-24] MEDS: PANTOPRAZOLE SODIUM 40 MG VIAL IVPUSH SCH (09:23)
[2023-12-24 09:25] LABS: CREATININE 0.7 mg/dL (0.55-1.3)
[2023-12-24 09:26] LABS: BILIRUBIN,TOTAL 0.7 mg/dL (0.2-1); TOT PROT 6.5 g/dl (6.4-8.2)
[2023-12-24] MEDS: PANTOPRAZOLE 40 MG TABLET PO SCH (14:08)
[2023-12-24] MEDS: THIAMINE HCL 100 MG TABLET (FP) PO SCH (14:11)
[2023-12-24] MEDS: chlordiazePOXIDE HCL 10 MG CAPSULE PO SCH (16:06)
[2023-12-24] MEDS: MAG HYDROX/AL HYDROX/SIMETH 30 ML UNIT-DOSE CUP PO PRN (19:25)
[2023-12-25] MEDS ORDERED: MAG HYDROX/AL HYDROX/SIMETH 30 ML UNIT-DOSE CUP PO SCH
[2023-12-25 09:25] LABS: BASO % 0.2 % (0-2.0); EOS % 0.3 % (0-4.5); HEMATOCRIT 41.6 % (32.4-45.2); HEMOGLOBIN 14.1 GM/dL (10.7-15.3); LYMPH % 18.6 % (8-40); MCH 30.1 pg (25.7-33.7); MCHC 33.8 g/dl (32.0-36.0); MEAN CELL VOLUME 88.9 fl (80-96); MEAN PLT VOLUME 9.2 fl (7.5-11.1); MONO % 8.8 % (3.8-10.2); NEUT % 72.1 % (42.8-82.8); PLATELET COUNT 78 10^3/uL (134-434); RBC 4.67 M/mm3 (3.60-5.2); RDW 14.4 % (11.6-15.6); WHITE BLOOD COUNT 6.4 K/mm3 (4.0-10.0)
[2023-12-25 09:50] LABS: POTASSIUM 3.8 mmol/L (3.5-5.1)
[2023-12-25 09:56] LABS: ALBUMIN 3.3 g/dl (3.4-5.0); BLOOD UREA NITROGEN 12.4 mg/dL (7-18); CALCIUM 8.6 mg/dL (8.5-10.1)
[2023-12-25 09:59] LABS: CREATININE 0.6 mg/dL (0.55-1.3)
[2023-12-25 10:00] LABS: TOT PROT 6.8 g/dl (6.4-8.2)
[2023-12-25] MEDS ORDERED: ENOXAPARIN NA (PORCINE) 40 MG/0.4 ML DISP.SYRIN SQ SCH (10:00)
[2023-12-25] MEDS: FOLIC ACID 1 MG TABLET (FP) PO SCH (11:06)
[2023-12-25 15:19] VITALS: BP 157/85; PULSE 56; TEMP 98.8
[2023-12-25] MEDS ORDERED: AMOX TR/POT CLAV 875MG/125MG TABLETS (FP) PO SCH (17:30)
== END 2023-12-25 15:38 | disposition home or self-care (01) | DRG 392 ==
LOC: JER 09:20 → JERBED 16:47 → J8W 19:26
PROVIDERS: ADMIT Internal Medicine; ATTEND Nurse Practitioner Acute Care
DX: R10.9 Unspecified abdominal pain (principal); F11.20 Opioid dependence, uncomplicated; F13.20 Sedative, hypnotic or anxiolytic dependence, uncomplicated; D69.6 Thrombocytopenia, unspecified; F10.10 Alcohol abuse, uncomplicated; F17.200 Nicotine dependence, unspecified, uncomplicated
CPT/HCPCS: 36415; 71046-TC-FY; 74177-TC; 80048; 80053; 80307; 83036; 83690; 83735; 84100; 84443; 84484; 85025; 86140; 93005; 93010; 99285-25; Q9967